=== PATIENT | male | born 1955 | race Caucasian/White ===

== ENCOUNTER 2016-08-16 09:58 | Emergency (ER) | payer OTHER, MEDICAID ==
[2016-08-16] MEDS ORDERED: DIPHENHYDRAMINE HCL 50 MG/ML VIAL ONE (10:09)
[2016-08-16] MEDS ORDERED: FAMOTIDINE INJ/PF 20 MG/2 ML SDV IV ONE ×2 (10:10→10:11)
[2016-08-16] MEDS ORDERED: METHYLPREDNISOLONE INJ 125 MG/2 ML SDV ONE (10:10)
[2016-08-16] MEDS ORDERED: EPINEPHRINE INJ/PF 1 MG/1 ML AMPULE ONE (10:10)
[2016-08-16] MEDS ORDERED: DIPHENHYDRAMINE HCL 50 MG/ML VIAL IV ONE (10:11)
[2016-08-16] MEDS ORDERED: METHYLPREDNISOLONE INJ 125 MG/2 ML SDV IV ONE (10:12)
[2016-08-16] MEDS ORDERED: EPINEPHRINE INJ/PF 1 MG/1 ML AMPULE IM ONE (10:13)
--- NOTE | 2016-08-16 10:14 | ER Document Report ---
ED Medical Screen (RME) - General Stated Complaint: BEE STING POSSIBLE Time Seen by Provider: 08/16/16 10:11 Mode of Arrival: Ambulatory Information source: Patient Notes: 60-year-old male who is allergic to bees was stung by bee just prior to arrival , EpiPen at home was , patient admits to difficulty breathing shortness of breath I have greeted and performed a rapid initial assessment of this patient. A comprehensive ED assessment and evaluation of the patient, analysis of test results and completion of the medical decision making process will be conducted by additional ED providers. PHYSICAL EXAMINATION: GENERAL: Appears to be having difficulty breathing HEAD: Atraumatic, normocephalic. EYES: Pupils equal round extraocular movements intact, conjunctiva are normal. ENT: Nares patent NECK: Normal range of motion LUNGS: Mild respiratory distress patient does have mild stress Musculoskeletal: Normal range of motion NEUROLOGICAL: Normal speech, normal gait. PSYCH: Normal mood, normal affect. SKIN: Warm, Dry, normal turgor, no rashes or lesions noted. TRAVEL OUTSIDE OF THE [place] IN LAST 30 DAYS: No - Related Data Allergies/Adverse Reactions: bee pollen [Bee Pollen] Allergy (Mild, Verified 08/19/15 12:40) propoxyphene napsylate [From Darvocet-N 100] Adverse Reaction (Intermediate, Verified 08/19/15 12:40) GI upset Past Medical History - Past Medical History Cardiac Medical History: Denies: Hx Coronary Artery Disease, Hx Heart Attack, Hx Hypertension Pulmonary Medical History: Denies: Hx Asthma, Hx Bronchitis, Hx COPD, Hx Pneumonia Neurological Medical History: Reports: Hx Migraine. Denies: Hx Cerebrovascular Accident, Hx Seizures Renal/ Medical History: Reports: Hx Kidney Stones Musculoskeltal Medical History: Denies Hx Arthritis Past Surgical History: Reports: Hx Orthopedic Surgery - Left rotator cuff, August 27 2015 - Immunizations Hx Diphtheria, Pertussis, Tetanus Vaccination: Yes
[2016-08-16] MEDS ORDERED: ASPIRIN 325 MG TABLET PO ONE (10:20)
[2016-08-16 10:40] LABS: ABSOLUTE BASOPHILS # (AUTO) 0.1 10^3/uL (0.0-0.2); ABSOLUTE EOSINOPHILS # (AUTO) 0.4 10^3/uL (0.0-0.6); ABSOLUTE LYMPHOCYTES (AUTO) 3.4 10^3/uL (0.5-4.7); ABSOLUTE NEUT (AUTO) 4.2 10^3/uL (1.7-8.2); BASOPHILS % (AUTO) 1.2 % (0-2); EOSINOPHILS % (AUTO) 4.5 % (0-6); HEMOGLOBIN 13.5 g/dL (13.5-17.0); HGB HCT DIFFERENCE 0.5; LYMPHOCYTES % (AUTO) 37.2 % (13-45); MEAN CORPUSCULAR HEMOGLOBIN 34.8 pg (27.0-33.4); MEAN CORPUSCULAR HGB CONC 33.7 g/dL (32.0-36.0); MEAN CORPUSCULAR VOLUME 103 fl (80-97); MONOCYTES % (AUTO) 10.7 % (3-13); RED BLOOD COUNT 3.87 10^6/uL (4.35-5.55); RED CELL DISTRIBUTION WIDTH 13.6 % (11.5-14.0); SEGMENTED NEUTROPHILS % (AUTO) 46.4 % (42-78)
--- NOTE | 2016-08-16 10:40 | ER Document Report ---
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 Patient states he started to have some lightheadedness as well as itching with some "scratchiness" of his throat. Patient came in by private vehicle. Patient denies any shortness of breath. Patient states that after the bee stings prior to any medication administration he felt some substernal nonradiating chest pain. Patient does have a history of a myocardial infarction. He denies any calf pain or leg swelling. Patient denies any chest pain at this time. He also states of mild frontal nonradiating headache without blurry vision. TRAVEL OUTSIDE OF THE [place] IN LAST 30 DAYS: No - HPI Onset: Other - See above Onset/Duration: Sudden Quality of pain: Other - See above Severity: Severe Pain Level: 1 Identified cause: Yes Skin rash / itching: "Redness" Trouble swallowing / speaking: Mild Associated symptoms: Other - See above Similar symptoms previously: Yes Recently seen / treated by doctor: No - Related Data Allergies/Adverse Reactions: bee pollen [Bee Pollen] Allergy (Mild, Verified 08/16/16 10:28) propoxyphene napsylate [From Darvocet-N 100] Adverse Reaction (Intermediate, Verified 08/16/16 10:28) GI upset Past Medical History - General Information source: Patient - Social History Smoking Status: Unknown if Ever Smoked Cigarette use (# per day): No Chew tobacco use (# tins/day): No Smoking Education Provided: No Frequency of alcohol use: None Drug Abuse: None Family History: Reviewed & Not Pertinent - Past Medical History Cardiac Medical History: Denies: Hx Coronary Artery Disease, Hx Heart Attack, Hx Hypertension Pulmonary Medical History: Denies: Hx Asthma, Hx Bronchitis, Hx COPD, Hx Pneumonia Neurological Medical History: Reports: Hx Migraine. Denies: Hx Cerebrovascular Accident, Hx Seizures Renal/ Medical History: Reports: Hx Kidney Stones Musculoskeltal Medical History: Denies Hx Arthritis Past Surgical History: Reports: Hx Orthopedic Surgery - Left rotator cuff, August 27 2015 - Immunizations Hx Diphtheria, Pertussis, Tetanus Vaccination: Yes Review of Systems - Review of Systems Constitutional: denies: Fever EENT: denies: Eye discharge, Double vision, Nose discharge Cardiovascular: Chest pain, Lightheaded. denies: Palpitations, Heart racing Respiratory: denies: Cough, Short of breath Gastrointestinal: denies: Vomiting Genitourinary: denies: Dysuria Musculoskeletal: denies: Leg swelling Skin: Rash Neurological/Psychological: Other - no slurred speech -: Yes All other systems reviewed and negative Physical Exam - Vital signs Vitals: Resp Pulse Ox 35 H 98 08/16/16 10:08 08/16/16 10:08 Notes: Reviewed vital signs and nursing note as charted by RN. CONSTITUTIONAL: Alert and oriented and responds appropriately to questions. Patient having some diffuse slight tremors HEAD: Normocephalic; atraumatic EYES: PERRL ENT: Normal nose; no rhinorrhea; no obvious lip, tongue, posterior pharyngeal swelling noted 5 minutes after epinephrine was administered; moist mucous membranes; pharynx without lesions noted NECK: Supple without meningismus; non-tender; no cervical lymphadenopathy, no masses CARD: Regular rate and rhythm; no murmurs, no clicks, no rubs, no gallops; symmetric distal pulses RESP: Normal chest excursion without splinting or tachypnea; breath sounds clear and equal bilaterally; no wheezing or stridor noted ABD/GI: Normal bowel sounds; non-distended; soft, non-tender BACK: The back appears normal and is non-tender to palpation EXT: Normal ROM in all joints; non-tender to palpation; no cyanosis, no effusions, no edema SKIN: Has some blanching hives to the inner thigh and right arm consistent with bee stings NEURO: Moves all extremities equally; Motor and sensory function intact PSYCH: The patient's mood and manner are appropriate. Grooming and personal hygiene are appropriate. Course - Re-evaluation Re-evalutation: 08/16/16 10:38 Given the above history, physical examination, past history, and presentation, the patient was administered epinephrine upon arrival by the triage provider. Solu-Medrol and Benadryl has also been given. Patient states he feels "better" . Given the patient's chest discomfort after the bee sting, we will obtain 2 sets of cardiac enzymes by 3 hours as we monitor the patient. 08/16/16 11:31 Patient's blood pressure is systolic in the high 80s. He is not tachycardic. Patient feels much improved. EKG shows a heart rate of 83, normal sinus rhythm, normal axis, no obvious ST elevation or depression. Flattening T waves in leads II, aVL, aVF, V3, V2 and V3. 08/16/16 12:32 Denies any chest pain at this time. 08/16/16 14:59 Patient is denying any chest pain at this time. Basically unchanged troponin at the 3 hour delaney. Repeat EKG shows a heart rate of 52, normal sinus rhythm, normal axis, no obvious ST elevation or depression. - Vital Signs Vital signs: Temp Pulse Resp BP Pulse Ox 98.2 F 20 100/58 L 99 08/16/16 10:09 08/16/16 11:06 08/16/16 11:06 08/16/16 11:06 - Laboratory Result Diagrams: 08/16/16 10:27 08/16/16 10:56 Laboratory results interpreted by me: 08/16/16 08/16/16 10:27 10:56 RBC 3.87 L MCV 103 H MCH 34.8 H Potassium 3.2 L Glucose 172 H Critical Care Note - Critical Care Note Total time excluding time spent on procedures (mins): 35 Discharge - Discharge Clinical Impression: Anaphylaxis Qualifiers: Encounter type: initial encounter Qualified Code(s): T78.2XXA - Anaphylactic shock, unspecified, initial encounter Bee sting Qualifiers: Encounter type: initial encounter Injury intent: accidental or unintentional Qualified Code(s): T63.441A - Toxic effect of venom of bees, accidental ( unintentional), initial encounter Condition: Good Disposition: HOME, SELF-CARE Additional Instructions: Come back immediately with any difficulty breathing, facial swelling, tongue swelling, return of chest pain, or any other acute problems. Please follow-up with your primary doctor as we have discussed. Prescriptions: Epinephrine [Epipen] 0.3 mg IJ ASDIR PRN #1 auto.injct PRN Reason: Prednisone 20 mg PO DAILY #6 tablet
--- NOTE | 2016-08-16 11:13 | RADIOLOGY REPORT (SQ) ---
EXAM DESCRIPTION: CHEST SINGLE VIEW COMPLETED DATE/TIME: 08/16/2016 10:49 am REASON FOR STUDY: Bee sting; sob COMPARISON: Chest films 10/18/2012, 10/06/2014, 07/30/2015, 11/05/2015 EXAM PARAMETERS: NUMBER OF VIEWS: One view. TECHNIQUE: Single frontal radiographic view of the chest acquired. RADIATION DOSE: NA LIMITATIONS: None. FINDINGS: LUNGS AND PLEURA: No opacities, masses or pneumothorax. No pleural effusion. MEDIASTINUM AND HILAR STRUCTURES: No masses. Contour normal. HEART AND VASCULAR STRUCTURES: Heart normal in size. Normal vasculature. BONES: No acute findings. HARDWARE: None in the chest. OTHER: No other significant finding. IMPRESSION: NO ACUTE RADIOGRAPHIC FINDING IN THE CHEST. TECHNICAL DOCUMENTATION: JOB ID: [id number]
[2016-08-16 11:24] LABS: ANION GAP 12 (5-19); BLOOD UREA NITROGEN 16 mg/dL (7-20); CALCIUM 8.9 mg/dL (8.4-10.2); CARBON DIOXIDE 23 mmol/L (22-30); CHLORIDE 106 mmol/L (98-107); CREATININE RESULT 1.01 mg/dL (0.52-1.25); GLUCOSE 172 mg/dL (75-110); POTASSIUM 3.2 mmol/L (3.6-5.0); SODIUM 140.5 mmol/L (137-145)
--- NOTE | 2016-08-16 12:58 | EKG REPORT ---
SEVERITY:- ABNORMAL ECG - SINUS RHYTHM INFERIOR INFARCT, AGE INDETERMINATE, CONSIDER POSTERIOR WALL INVOLVEMENT. : Confirmed by: David Milton MD 16-Aug-2016 12:57:21
[2016-08-16 16:14] VITALS: BP 92/59
--- NOTE | 2016-08-16 21:07 | EKG REPORT ---
SEVERITY:- ABNORMAL ECG - SINUS RHYTHM EARLY TRANSITION, CONSIDER OLD INFERO POST RI FROM Oct : Confirmed by: David Milton MD 16-Aug-2016 21:07:16
== END 2016-08-16 16:17 | disposition home or self-care (01) ==
LOC: ER 09:58
DX: T78.2XXA Anaphylactic shock, unspecified, initial encounter (principal); T63.441A Toxic effect of venom of bees, accidental (unintentional), initial encounter; W57.XXXA Bitten or stung by nonvenomous insect and other nonvenomous arthropods, initial encounter
CPT/HCPCS: 93005; 99285; 96372; 96374; 96375; 36415; 85025; 80048; 84484; 71010; 93010; J1200; J0171; J2930; S0028

== ENCOUNTER 2016-10-09 12:59 | Observation (INO) | payer OTHER, MEDICAID ==
[2016-10-09] MEDS ORDERED: MORPHINE SULFATE 10 MG/ML INJ IV ONE (13:37)
[2016-10-09] MEDS ORDERED: ONDANSETRON HCL INJ/PF 4 MG/2 ML SDV IV ONE (13:37)
--- NOTE | 2016-10-09 13:39 | ER Document Report ---
ED GI/ <MARY WEEKS - Last Filed: 10/09/16 23:26> - General Mode of Arrival: Wheelchair Information source: Patient TRAVEL OUTSIDE OF THE [place] IN LAST 30 DAYS: No - HPI Patient complains to provider of: Flank pain, Groin pain Onset: Last week Timing/Duration: Waxing and waning, Worse Quality of pain: Sharp Pain Level: 5 Location: Right flank Associated symptoms: Dysuria, Lightheaded, Nausea. denies: Loss of appetite, Urinary hesitancy, Urinary frequency, Urinary retention, Urinary urgency, Vomiting Exacerbated by: Denies Relieved by: Denies Similar symptoms previously: Yes Recently seen / treated by doctor: No <SUSAN SMITH - Last Filed: 10/10/16 07:06> - General Chief Complaint: Flank Pain Stated Complaint: FLANK PAIN Time Seen by Provider: 10/09/16 13:16 Notes: Patient presents complaining of right flank pain off and on for the past week that worsened today. Patient states pain radiates into his right groin. Patient also reports some nausea and dysuria. Patient reports occasional lightheadedness. Patient states he has had history kidney stones and suspects the same today. (SUSAN SMITH) - Related Data Allergies/Adverse Reactions: bee pollen [Bee Pollen] Allergy (Mild, Verified 10/09/16 20:13) propoxyphene napsylate [From Darvocet-N 100] Adverse Reaction (Intermediate, Verified 10/09/16 20:13) GI upset Home Medications: Current Home Medications Aspirin [Aspirin 81 mg Chewable Tablet] 81 mg PO DAILY 10/09/16 [History] Atorvastatin Calcium 80 mg PO QHS 10/09/16 [History] Furosemide [Lasix 40 mg Tablet] 40 mg PO PRN PRN 10/09/16 [History] Losartan Potassium 12.5 mg PO DAILY 10/09/16 [History] Nitroglycerin [Nitrostat] 0.4 mg SL PRN PRN 10/09/16 [History] Ticagrelor [Brilinta 90 mg Tablet] 1 tab PO BID 10/09/16 [History] Past Medical History - General Information source: Patient - Social History Smoking Status: Current Every Day Smoker Frequency of alcohol use: Occasional Drug Abuse: None Occupation: none Lives with: Spouse/Significant other Family History: Reviewed & Not Pertinent Patient has suicidal ideation: No Patient has homicidal ideation: No - Past Medical History Cardiac Medical History: Reports: Hx Heart Attack Denies: Hx Coronary Artery Disease, Hx Hypertension Pulmonary Medical History: Denies: Hx Asthma, Hx Bronchitis, Hx COPD, Hx Pneumonia Neurological Medical History: Reports: Hx Migraine. Denies: Hx Cerebrovascular Accident, Hx Seizures Renal/ Medical History: Reports: Hx Kidney Stones. Denies: Hx Peritoneal Dialysis Musculoskeltal Medical History: Denies Hx Arthritis Past Surgical History: Reports: Hx Orthopedic Surgery - Left rotator cuff, August 27 2015 - Immunizations Hx Diphtheria, Pertussis, Tetanus Vaccination: Yes <SUSAN SMITH - Last Filed: 10/10/16 07:06> Review of Systems - Review of Systems Constitutional: No symptoms reported. denies: Fever, Recent illness EENT: No symptoms reported Cardiovascular: Lightheaded. denies: Chest pain Respiratory: No symptoms reported. denies: Cough, Short of breath Gastrointestinal: Nausea. denies: Vomiting Genitourinary: Dysuria, Flank pain Male Genitourinary: No symptoms reported Musculoskeletal: Back pain Skin: No symptoms reported Hematologic/Lymphatic: No symptoms reported Neurological/Psychological: No symptoms reported <SUSAN SMITH - Last Filed: 10/10/16 07:06> Physical Exam - General General appearance: Appears well, Alert In distress: Mild - Respiratory Respiratory status: No respiratory distress Chest status: Nontender Breath sounds: Normal. No: Rales, Rhonchi, Stridor, Wheezing Chest palpation: Normal - Cardiovascular Rhythm: Regular Heart sounds: S1 appreciated, S2 appreciated Murmur: No - Abdominal Inspection: Normal Distension: No distension Bowel sounds: Normal Tenderness: Nontender Organomegaly: No organomegaly - Genitourinary Inspection: Normal Tenderness: Testicle tender - right, Epididymis tender - right Cremasteric reflex: Normal Scrotum: Normal - Back Back: CVA tenderness - right - Extremities General upper extremity: Normal inspection, Normal ROM General lower extremity: Normal inspection, Normal ROM - Neurological Neuro grossly intact: Yes Cognition: Normal [place] Coma Scale Eye Opening: Spontaneous Dexter Coma Scale Verbal: Oriented Dexter Coma Scale Motor: Obeys Commands Dexter Coma Scale Total: 15 - Psychological Associated symptoms: Normal affect, Normal mood - Skin Skin Temperature: Warm Skin Moisture: Dry Skin Color: Normal <SUSAN SMITH - Last Filed: 10/10/16 07:06> - Vital signs Vitals: Temp Pulse Resp BP Pulse Ox 98.6 F 72 20 121/73 99 10/09/16 13:07 10/09/16 13:07 10/09/16 13:07 10/09/16 13:07 10/09/16 13:07 Course - Laboratory Result Diagrams: 10/09/16 13:55 10/09/16 13:55 <MARY WEEKS - Last Filed: 10/09/16 23:26> - Laboratory Result Diagrams: 10/09/16 13:55 10/09/16 13:55 - Diagnostic Test Radiology reviewed: Reports reviewed <LUISSUSAN - Last Filed: 10/10/16 07:06> - Re-evaluation Re-evalutation: 10/09/16 23:26 Repeat trop 0.028 still below AMI cutoff, patient without chest pain since his initial episode. Discussed with hospitalist who agrees to telly obs. for chest pain (MARY WEEKS) 10/09/16 14:09 RN reports that after IV was placed, patient became diaphoretic and complained of chest tightness. Additional diagnostic tests ordered. Patient states that his chest tightness is resolving at this time. 10/09/16 15:27 Patient mildly hypotensive, patient states that his blood pressure always runs low. Patient states that he continues with right flank pain although denies any chest tightness at this time. 10/09/16 19:09 Patient resting comfortably at this time, patient denies any additional chest pain during ER stay. Discussed results of patient's ultrasound report with patient. Patient advised that he will need to follow-up with a urologist for a recheck. Discussed upward trending repeat trop with Dr Dawson who advises consultation with hospitalist. 10/09/16 20:26 Repeat EKG performed and reviewed per dr Dawson. 10/09/16 20:[address] Berman who advises repeating cardiac enzymes 1 hour from now. Will determine after labs are resulted whether or not he will admit patient. Bedside report and handout given to Mary GURROLA (SUSAN SMITH) - Vital Signs Vital signs: Temp Pulse Resp BP Pulse Ox 97.8 F 51 L 17 109/47 L 97 10/10/16 04:05 10/10/16 04:05 10/10/16 04:05 10/10/16 04:05 10/10/16 04:05 - Laboratory Laboratory results interpreted by me: 10/09/16 10/09/16 13:55 13:55 RBC 4.17 L MCV 101 H MCH 34.9 H Eosinophils % 6.4 H Direct Bilirubin 0.5 H Discharge - Discharge Admitting Provider: [facility] Unit Admitted: Telemetry <MARY WEEKS - Last Filed: 10/09/16 23:26> <SUSAN SMITH - Last Filed: 10/10/16 07:06> - Discharge Clinical Impression: Flank pain, Orchitis Chest pain Qualifiers: Chest pain type: unspecified Qualified Code(s): R07.9 - Chest pain, unspecified Condition: Stable Disposition: ADMITTED OBSERVATION
[2016-10-09 14:37] LABS: ABSOLUTE BASOPHILS # (AUTO) 0.1 10^3/uL (0.0-0.2); ABSOLUTE EOSINOPHILS # (AUTO) 0.4 10^3/uL (0.0-0.6); ABSOLUTE LYMPHOCYTES (AUTO) 2.6 10^3/uL (0.5-4.7); ABSOLUTE MONOCYTES (AUTO) 0.6 10^3/uL (0.1-1.4); ABSOLUTE NEUT (AUTO) 2.6 10^3/uL (1.7-8.2); BASOPHILS % (AUTO) 1.2 % (0-2); EOSINOPHILS % (AUTO) 6.4 % (0-6); HEMOGLOBIN 14.5 g/dL (13.5-17.0); HGB HCT DIFFERENCE 1.5; MEAN CORPUSCULAR HEMOGLOBIN 34.9 pg (27.0-33.4); MEAN CORPUSCULAR HGB CONC 34.6 g/dL (32.0-36.0); MEAN CORPUSCULAR VOLUME 101 fl (80-97); MONOCYTES % (AUTO) 9.4 % (3-13); RED BLOOD COUNT 4.17 10^6/uL (4.35-5.55); RED CELL DISTRIBUTION WIDTH 13.7 % (11.5-14.0); WHITE BLOOD COUNT 6.2 10^3/uL (4.0-10.5)
[2016-10-09] MEDS ORDERED: NORMAL SALINE 1000 ML 1,000 ML IV ONE ×2 (14:52→23:31)
[2016-10-09 14:55] LABS: ALANINE AMINOTRANSFERASE 29 U/L (21-72); ALBUMIN 4.2 g/dL (3.5-5.0); ALKALINE PHOSPHATASE 70 U/L (38-126); ANION GAP 11 (5-19); ASPARTATE AMINO TRANSFERASE 22 U/L (17-59); BILIRUBIN,DIRECT 0.5 mg/dL (0.0-0.4); BILIRUBIN,TOTAL 0.9 mg/dL (0.2-1.3); BLOOD UREA NITROGEN 13 mg/dL (7-20); CALCIUM 9.9 mg/dL (8.4-10.2); CARBON DIOXIDE 25 mmol/L (22-30); CHLORIDE 105 mmol/L (98-107); CREATINE KINASE 81 U/L (55-170); CREATININE RESULT 0.87 mg/dL (0.52-1.25); GLUCOSE 81 mg/dL (75-110); LIPASE 58.2 U/L (23-300); POTASSIUM 4.9 mmol/L (3.6-5.0); SODIUM 140.8 mmol/L (137-145); TOTAL PROTEIN 6.9 g/dL (6.3-8.2)
[2016-10-09 15:04] LABS: CREATINE KINASE MB 0.62 ng/mL (<4.55)
[2016-10-09 15:10] LABS: TROPONIN I < 0.012 ng/mL
--- NOTE | 2016-10-09 16:19 | RADIOLOGY REPORT (SQ) ---
EXAM DESCRIPTION: CTA CHEST COMPLETED DATE/TIME: 10/09/2016 4:10 pm REASON FOR STUDY: cp, r flank, ?disection COMPARISON: None. TECHNIQUE: CT scan of the chest performed using helical scanning technique with dynamic intravenous contrast injection. Images reviewed with lung, soft tissue and bone windows. Reconstructed coronal and sagittal MPR images reviewed. Additional 3 dimensional post-processing performed to develop Maximal Intensity Projection images (CO P). All images stored on PACS. All CT scanners at this facility use dose modulation, iterative reconstruction, and/or weight based d osing when appropriate to reduce radiation dose to as low as reasonably achievable (ALARA). [facility]: Dose Right [facility]: CareDose [facility]: Dose Right [facility]: Teradose 4D [facility]: Ouroboros CONTRAST TYPE AND DOSE: 75 mL Isovue 370- low osmolar. Contrast bolus optimized for the pulmonary arteries. Not diagnostic for the aorta. RENAL FUNCTION: BUN 13, creatinine 0.87 RADIATION DOSE: . LIMITATIONS: None. FINDINGS: LUNGS AND PLEURA: No masses, infiltrates, pneumothorax. No pleural effusions, calcificati ons. AORTA AND GREAT VESSELS: No aneurysm. Contrast bolus not optimized for the aorta. HEART: No pericardial effusion. No significant coronary artery calcifications. PULMONARY ARTERIES: No emboli visualized in the main pulmonary arteries or the segmental branches. HILAR AND MEDIASTINAL STRUCTURES: No identified masses or abnormal nodes. HARDWARE: None in the chest. UPPER ABDOMEN: No significant findings. Limited exam. THYROID AND OTHER SOFT TISSUES: No masses. No adenopathy. BONES: No acute or significant finding. 3D MIPS: Confirm above findings. OTHER: No other significant finding. IMPRESSION: NORMAL CTA OF THE CHEST. NO PULMONARY EMBOLI. COMMENT: Quality ID # [id number]: Final reports with documentation of one or more dose reduction techniques (e.g., Automated exposure control, adjustment of the mA and/or kV according to patient size, use of iterative reconstruction technique) TECHNICAL DOCUMENTATION: JOB ID: [id number] [email or web address]- All Rights Reserved
--- NOTE | 2016-10-09 16:22 | RADIOLOGY REPORT (SQ) ---
EXAM DESCRIPTION: CT ABD/PELVIS WITH IV ONLY COMPLETED DATE/TIME: 10/09/2016 4:11 pm REASON FOR STUDY: cp, r flank, ?disection COMPARISON: None. TECHNIQUE: CT scan of the abdomen and pelvis performed using helical scanning technique with dynamic intravenous contrast injection. No oral contrast. Images reviewed with lung, soft tissue, and bone windows. Reconstructed coronal and sagittal MPR images reviewed. Delayed images for evaluation of the urinary system also acquired. All images stored on PACS. All CT scanners at this facility use dose modulation, iterative reconstruction, and/or weight based d osing when appropriate to reduce radiation dose to as low as reasonably achievable (ALARA). [facility]: Dose Right [facility]: CareDose [facility]: Dose Right [facility]: Teradose 4D [facility]: Track the Bet CONTRAST TYPE AND DOSE: contrast/concentration: Isovue 370.00 mg/ml; Total Contrast Delivered: 89.0 ml; Total Saline Delivered: 75.0 ml RENAL FUNCTION: BUN 13, creatinine 0.7 RADIATION DOSE: Up-to-date CT equipment and radiation dose reduction techniques were employed. CTDIv ol: 10.1 - 46.3 mGy. DLP: 1656 mGy-cm.. LIMITATIONS: None. FINDINGS: LOWER CHEST: No significant findings. No nodules or infiltrates. LIVER: Normal size. No masses. No dilated ducts. SPLEEN: Normal size. No focal lesions. PANCREAS: No masses. No significant calcifications. No adjacent inflammation or peripancreatic fluid collections. Pancreatic duct not dilated. GALLBLADDER: No identified stones by CT criteria. No inflammatory changes to suggest cholecystitis. ADRENAL GLANDS: No significant masses or asymmetry. RIGHT KIDNEY AND URETER: No solid masses. No significant calcifications. No hydronephrosis or hyd roureter. LEFT KIDNEY AND URETER: No solid masses. No significant calcifications. No hydronephrosis or hydr oureter. There is a small cortical cyst. AORTA AND VESSELS: No aneurysm. No dissection. Renal arteries, SMA, celiac without stenosis. RETROPERITONEUM: No retroperitoneal adenopathy, hemorrhage or masses. BOWEL AND PERITONEAL CAVITY: No masses or inflammatory changes. No free fluid or peritoneal masses. APPENDIX: Normal. PELVIS: No mass. No free fluid. Normal bladder. ABDOMINAL WALL: No masses. No hernias. BONES: No significant or acute findings. OTHER: No other significant finding. IMPRESSION: NO SIGNIFICANT OR ACUTE FINDING IN THE ABDOMEN OR PELVIS ON CT SCAN WITH IV CONTRAST. TECHNICAL DOCUMENTATION: JOB ID: [id number] Quality ID # [id number]: Final reports with documentation of one or more dose reduction techniques (e.g., Au tomated exposure control, adjustment of the mA and/or kV according to patient size, use of iterative reconstruction technique) 2010 [employer]- All Rights Reserved
[2016-10-09] MEDS ORDERED: FENTANYL CITRATE INJ/PF 100 MCG/2 ML AMPUL IV ONE (17:17)
[2016-10-09] MEDS ORDERED: LIDOCAINE 5% (700 MG) TRANSDERMAL ADH..PATCH TP ONE (17:18)
[2016-10-09 17:31] LABS: APPEARANCE,URINE CLEAR; BILIRUBIN,URINE NEGATIVE (NEGATIVE); GLUCOSE, URINE NEGATIVE (NEGATIVE); KETONES,URINE NEGATIVE (NEGATIVE); LEUKOCYTE ESTERASE,URINE NEGATIVE (NEGATIVE); NITRITE,URINE NEGATIVE (NEGATIVE); PROTEIN,URINE NEGATIVE (NEGATIVE); URINE SPECIFIC GRAVITY 1.023; UROBILINOGEN,URINE NEGATIVE mg/dL (<2.0)
[2016-10-09 17:48] LABS: URINE BARBITURATES SCREEN NEGATIVE; URINE METHADONE SCREEN NEGATIVE; URINE OPIATES LOW UNCONFIRMED POSITIVE; URINE PHENCYCLIDINE SCREEN NEGATIVE
--- NOTE | 2016-10-09 18:51 | RADIOLOGY REPORT (SQ) ---
EXAM DESCRIPTION: U/S SCROTUM W/DOPPLER COMPLETED DATE/TIME: 10/09/2016 6:31 pm REASON FOR STUDY: scrotal tenderness COMPARISON: 2014. TECHNIQUE: Static and realtime dawson scale imaging of the scrotum and testes. Selected color Doppler and spectral images recorded to document blood flow. LIMITATIONS: None. FINDINGS: RIGHT: TESTICLE: Normal size. Normal echotexture. Hypervascular blood flow. No mass. EPIDIDYMIS: Normal. HYDROCELE OR VARICOCELE: Large hydrocele with debris. HERNIA OR EXTRA-TESTICULAR MASS: No. OTHER: No other significant finding. LEFT: TESTICLE: Normal size. Normal echotexture. Normal blood flow. No mass. EPIDIDYMIS: Normal. HYDROCELE OR VARICOCELE: Large hydrocele with debris. HERNIA OR EXTRA-TESTICULAR MASS: No. OTHER: Mild scrotal thickening. IMPRESSION: 1. Bilateral sizable hydroceles. Probable right orchitis. No evidence of torsion, purnima a[place] TECHNICAL DOCUMENTATION: JOB ID: [id number] [employer]- All Rights Reserved
[2016-10-09] MEDS ORDERED: CEFTRIAXONE INJ 250 MG VIAL IV ONE (18:58)
[2016-10-09] MEDS ORDERED: ASPIRIN 81 MG TABLET, CHEWABLE PO ONE (19:37)
[2016-10-09] MEDS ORDERED: LEVOFLOXACIN 500 MG TABLET PO ONE (19:58)
[2016-10-09 23:16] LABS: CREATINE KINASE MB 0.74 ng/mL (<4.55); TROPONIN I 0.028 ng/mL
--- NOTE | 2016-10-09 23:17 | EKG REPORT ---
SEVERITY:- ABNORMAL ECG - SINUS RHYTHM PROBABLE LEFT ATRIAL ABNORMALITY PROBABLE INFERIOR INFARCT, AGE INDETERMINATE : Confirmed by: Jeremie Rivera 09-Oct-2016 23:16:18
--- NOTE | 2016-10-09 23:17 | EKG REPORT ---
SEVERITY:- BORDERLINE ECG - SINUS BRADYCARDIA BORDERLINE LEFT AXIS DEVIATION BORDERLINE INFERIOR Q WAVES : Confirmed by: Jeremie Rivera 09-Oct-2016 23:16:29
--- NOTE | 2016-10-09 23:17 | EKG REPORT ---
SEVERITY:- OTHERWISE NORMAL ECG - SINUS RHYTHM BORDERLINE LEFT AXIS DEVIATION : Confirmed by: Jeremie Rivera 09-Oct-2016 23:16:37
[2016-10-09] MEDS ORDERED: IPRATROPIUM/ALBUTEROL 0.5-2.5 MG/3 ML AMPUL NEB PRN (23:28)
[2016-10-09] MEDS ORDERED: ATORVASTATIN CALCIUM 80 MG TABLET PO SCH (23:45)
[2016-10-09] MEDS ORDERED: TICAGRELOR 90 MG TABLET PO SCH (23:45)
[2016-10-10] MEDS ORDERED: KETOROLAC TROMETHAMINE INJ/PF 30 MG/1 ML SDV IV PRN (01:01)
[2016-10-10] MEDS ORDERED: ACETAMINOPHEN 325 MG TABLET ONE (01:10)
[2016-10-10] MEDS ORDERED: ACETAMINOPHEN 325 MG TABLET PO PRN (01:30)
--- NOTE | 2016-10-10 05:38 | PDOC H&P ---
History of Present Illness Admission Date/PCP: 10/09/16 23:28 Patient complains of: Chest pain History of Present Illness: ESTRELLA RODRIGUEZ is a 61 year old male with a past medical history of coronary artery disease with stents, Tobacco Dependence, hypertension and dyslipidemia who would been in his usual state of health until approximately 4 hours prior to presentation developing left-sided flank pain which radiated to the groin prompting to seek evaluation emergency room. He had an extensive workup including CT of the chest, CT of the abdomen pelvis and abdominal ultrasound which was negative with exception to orchitis and subsequently ordered IV Rocephin however during the administration of this medication patient had an episode of aching nonradiating 4 out of 5 retrosternal chest pain lasting 15 minutes with diaphoresis prompting an evaluation of cardiac enzymes which was found to be elevated. An EKG showed Q waves in inferior leads and he is referred to the hospitalist for admission. He is currently pain-free he denies recent chest pain shortness of breath nausea vomiting. He denies change in medications. His chest pain today resolved spontaneously without intervention. Past Medical History Cardiac Medical History: Reports: Myocardial Infarction Denies: Coronary Artery Disease, Hypertension Pulmonary Medical History: Denies: Asthma, Bronchitis, Chronic Obstructive Pulmonary Disease (COPD), Pneumonia Neurological Medical History: Reports: Migraine Denies: Seizures Musculoskeltal Medical History: Denies: Arthritis Psychiatric Medical History: Reports: Tobacco Dependency Hematology: Denies: Anemia Past Surgical History Past Surgical History: Reports: Coronary Stent, Orthopedic Surgery - Left rotator cuff, August 27 2015 Social History Lives with: Spouse/Significant other Smoking Status: Current Every Day Smoker Cigarettes Packs Per Day: 1 Number of Years Smokin Last Time Smoked: 10/08/16 Frequency of Alcohol Use: Occasional Hx Recreational Drug Use: No Hx Prescription Drug Abuse: No - Advance Directive Resuscitation Status: Full Code Family History Family History: Hypertension Parental Family History Reviewed: Yes Children Family History Reviewed: Yes Sibling(s) Family History Reviewed.: Yes Medication/Allergy Home Medications: Epinephrine [Epipen] 0.3 mg IJ ASDIR PRN #1 auto.injct 08/16/16 Aspirin [Aspirin 81 mg Chewable Tablet] 81 mg PO DAILY 10/09/16 Atorvastatin Calcium 80 mg PO QHS 10/09/16 Furosemide [Lasix 40 mg Tablet] 40 mg PO PRN PRN 09/02/17 Hydrocodone/Acetaminophen [[place] 5-325 Tablet] 1 each PO Q4 PRN #15 tablet 10/09 Levofloxacin [Levaquin 500 mg Tablet] 500 mg PO DAILY #10 tablet 10/09/16 Losartan Potassium 12.5 mg PO DAILY 10/09/16 Nitroglycerin [Nitrostat] 0.4 mg SL PRN PRN 10/09/16 Ticagrelor [Brilinta 90 mg Tablet] 1 tab PO BID 10/09/16 Allergies/Adverse Reactions: bee pollen [Bee Pollen] Allergy (Mild, Verified 10/09/16 20:13) propoxyphene napsylate [From Darvocet-N 100] Adverse Reaction (Intermediate, Verified 10/09/16 20:13) GI upset Review of Systems Constitutional: ABSENT: chills, fever(s), headache(s), weight gain, weight loss Eyes: ABSENT: visual disturbances Ears: ABSENT: hearing changes Cardiovascular: ABSENT: chest pain, dyspnea on exertion, edema, orthropnea, palpitations Respiratory: ABSENT: cough, hemoptysis Gastrointestinal: ABSENT: abdominal pain, constipation, diarrhea, hematemesis, hematochezia, nausea, vomiting Genitourinary: ABSENT: dysuria, hematuria Musculoskeletal: ABSENT: joint swelling Integumentary: ABSENT: rash, wounds Neurological: ABSENT: abnormal gait, abnormal speech, confusion, dizziness, focal weakness, syncope Psychiatric: ABSENT: anxiety, depression, homidical ideation, suicidal ideation Endocrine: ABSENT: cold intolerance, heat intolerance, polydipsia, polyuria Hematologic/Lymphatic: ABSENT: easy bleeding, easy bruising Physical Exam Vital Signs: Temp Pulse Resp BP Pulse Ox 98.0 F 51 L 16 110/61 97 10/10/16 00:33 10/10/16 00:33 10/10/16 00:33 10/10/16 00:33 10/10/16 00:33 General appearance: PRESENT: no acute distress, well-developed, well-nourished Head exam: PRESENT: atraumatic, normocephalic Eye exam: PRESENT: conjunctiva pink, EOMI, PERRLA. ABSENT: scleral icterus Ear exam: PRESENT: normal external ear exam Mouth exam: PRESENT: moist, tongue midline Neck exam: ABSENT: carotid bruit, JVD, lymphadenopathy, thyromegaly Respiratory exam: PRESENT: clear to auscultation jessica. ABSENT: rales, rhonchi, wheezes Cardiovascular exam: PRESENT: RRR. ABSENT: diastolic murmur, rubs, systolic murmur Pulses: PRESENT: normal dorsalis pedis pul Vascular exam: PRESENT: normal capillary refill GI/Abdominal exam: PRESENT: normal bowel sounds, soft. ABSENT: distended, guarding, mass, organolmegaly, rebound, tenderness Rectal exam: PRESENT: deferred Extremities exam: PRESENT: full ROM. ABSENT: calf tenderness, clubbing, pedal edema Neurological exam: PRESENT: alert, awake, oriented to person, oriented to place , oriented to time, oriented to situation, CN II-XII grossly intact. ABSENT: motor sensory deficit Psychiatric exam: PRESENT: appropriate affect, normal mood. ABSENT: homicidal ideation, suicidal ideation Skin exam: PRESENT: dry, intact, warm. ABSENT: cyanosis, rash Results Impressions: Abdomen/Pelvis CT 10/09/16 14:07 IMPRESSION: NO SIGNIFICANT OR ACUTE FINDING IN THE ABDOMEN OR PELVIS ON CT SCAN WITH IV CONTRAST. Chest/Abdomen CTA 10/09/16 14:07 IMPRESSION: NORMAL CTA OF THE CHEST. NO PULMONARY EMBOLI. Scrotum Ultrasound 10/09/16 16:42 IMPRESSION: 1. Bilateral sizable hydroceles. Probable right orchitis. No evidence of torsion, however. Assessment & Plan - Diagnosis (1) Chest pain Qualifiers: Chest pain type: unspecified Qualified Code(s): R07.9 - Chest pain, unspecified Is this a current diagnosis for this admission?: Yes Plan: Observation on a monitored bed, aspirin. KORY inhibitor serial cardiac enzymes evaluation of risks for coronary artery disease Cardiolite stress test. (2) Orchitis Is this a current diagnosis for this admission?: Yes Plan: Symptomatic management denies risk for STD doxycycline p.o. - Time Time Spent: 30 to 50 Minutes
[2016-10-10] MEDS ORDERED: HEPARIN SOD (PORCINE) 5,000 UNIT/ML 1 ML SYRINGE SUBCUT SCH (06:00)
[2016-10-10 06:42] LABS: CREATINE KINASE MB 0.72 ng/mL (<4.55)
[2016-10-10 06:43] LABS: TROPONIN I < 0.012 ng/mL
[2016-10-10 08:31] VITALS: BP 95/57
[2016-10-10] MEDS ORDERED: NORMAL SALINE 1000 ML 1,000 ML IV ONE (09:00)
[2016-10-10] MEDS ORDERED: DOXYCYCLINE HYCLATE 100 MG TABLET PO SCH (10:00)
[2016-10-10] MEDS ORDERED: LOSARTAN POTASSIUM 25 MG TABLET PO SCH (10:00)
[2016-10-10] MEDS ORDERED: ASPIRIN 81 MG TABLET, CHEWABLE PO SCH (10:00)
[2016-10-10] MEDS ORDERED: LEVOFLOXACIN 750 MG/D5W RTU 750 MG/150 ML RTUPB IV SCH (10:00)
[2016-10-10] MEDS ORDERED: HYDROCODONE/ACETAMINOPHEN 5-325 MG TABLET PO PRN (10:41)
[2016-10-10 12:29] LABS: CHLAM PCR NOT DETECTED (NOT DETECT)
[2016-10-10] MEDS ORDERED: AMINOPHYLLINE INJ/PF 250 MG/10 ML SDV IV ONE (12:32)
[2016-10-10] MEDS ORDERED: REGADENOSON INJ 0.4 MG/5 ML DISP.SYRIN IV ONE (12:32)
--- NOTE | 2016-10-10 13:19 | DRAGON STRESS TEST REPORT ---
INTRAVENOUS LEXISCAN CARDIOLITE STRESS TEST USING SINGLE PHOTON EMMISION COMPUTERIZED TOMOGRAPHIC. DATE OF PROCEDURE: October 10, 2016 INDICATION : Chest pain CARDIAC RISK FACTORS: Hypertension, dyslipidemia, tobacco abuse RESTING EKG: Sinus rhythm, without any baseline ST-T wave changes. STRESS EKG: No significant changes noted with LexiScan bolus REASON FOR TERMINATION: Protocol. PROCEDURE REPORT: Baseline heart rate 60 beats per minute with blood pressure of 106/60. Patient had no significant complaints. Heart rate at 2 minutes post bolus 78 with a blood pressure of 121/62. 3 minutes post bolus heart rate 69 with blood pressure of 106/61. No significant EKG changes were noted. Patient had no significant complaints during the procedure or postprocedure. Patient injected with Aminophyllin 75 mg at 3 minutes or later after Lexiscan bolus. CONCLUSIONS: Normal EKG and hemodynamic response to IV LexiScan. NUCLEAR DATA: At rest the patient was given 10.48 millicuries of technetium 99 sestamibi injected intravenously. As per protocol rest gated SPECT images were obtained. Subsequently the patient was given intravenous LexiScan at a dose of 0.4 mg in 5 mL intravenously, followed by flush with normal saline. Subsequently the stress dose of 31.1 millicuries of technetium 99 sestamibi was injected intravenously. As per protocol stress gated images were obtained. NUCLEAR INTERPRETATION: Both raw and processed data were used for interpretation. Visual, qualitative, computer-generated quantitative data was used. There was good myocardial uptake of technetium compound. Motion artifact and soft tissue attenuations were noted. Increased visceral uptake was noted. No definitive areas of transient perfusion defect noted except for borderline decreased uptake in the basal inferior with SDS score of just 1. No definitive areas of fixed perfusion defect or scars noted. EKG gated imaging showed LV EF at 51 %, rest and stress gated EF similar visually. T. I D. ratio was 0.16 lung heart ratio noted to be within normal limits neuro 0.40. No significant extracardiac and abnormal radiotracer activities were noted. RV free wall uptake was noted to be wnl to borderline increased. IMPRESSION: Also refer to comments under nuclear interpretation. Also test results needs to be interpreted in the context of pretest probability. 1. There is no definitive scintigraphic evidence of LexiScan induced myocardial ischemia, except for borderline decreased uptake in the basal inferior wall in the stress images felt to be not significant. However clinical correlation is requested. SDS score was 1 therefore medical management would be a satisfactory option. 2. There is no definitive scintigraphic evidence of myocardial infarction/scar. 3. EKG gated imaging shows left ventricular ejection fraction of approximately 51 %. 4. Clinical correlation requested as occasionally single vessel disease or balanced ischemia could be missed. In approximately 10% of the cases Lexiscan may not cause adequate vasodilatory stress. RECOMMENDATIONS: Aggressive risk factor modification, medical therapy. Clinical correlation with echocardiogram derived ejection fraction. Inability to exercise by itself can lead to increased cardiovascular event risks. Consider cardiology consultation and or follow-up if clinically indicated. I AM AVAILABLE FOR CARDIOLOGY CONSULTATION AND FOLLOWUP IF REQUESTED BY PMD Jeremie Rivera M.D., MELANIE Senior Infrastructure Engineer tracer lathe set up operator, Board certified in cardiovascular diseases, Nuclear cardiology, Echocardiography Cardiac CT and cardiac MRI Ph. [phone] [facility]ALTHMartin
--- NOTE | 2016-10-11 07:36 | PDOC DISCHARGE SUMMARY ---
General - Admit/Disc Date/PCP Admission Date/Primary Care Provider: 10/09/16 23:28 Discharge Date: 10/10/16 - Discharge Diagnosis (1) Chest pain Is this a current diagnosis for this admission?: Yes (2) Orchitis Is this a current diagnosis for this admission?: Yes (3) Tobacco abuse Is this a current diagnosis for this admission?: Yes - Additional Information Resuscitation Status: Full Code Discharge Diet: Cardiac Discharge Activity: Activity As Tolerated, Pelvic Rest, Other - elevate and ice scrotum Home Medications: Epinephrine [Epipen] 0.3 mg IJ ASDIR PRN #1 auto.injct 08/16/16 Aspirin [Aspirin 81 mg Chewable Tablet] 81 mg PO DAILY 10/09/16 Atorvastatin Calcium 80 mg PO QHS 10/09/16 Furosemide [Lasix 40 mg Tablet] 40 mg PO DAILYP PRN 10/09/16 Losartan Potassium 12.5 mg PO DAILY 10/09/16 Ticagrelor [Brilinta 90 mg Tablet] 90 mg PO Q12 10/09/16 Cefuroxime Axetil [Ceftin 500 mg Tablet] 1 tab PO BID #14 tablet 10/10/16 Hydrocodone/Acetaminophen [[place] 5-325 mg Tablet] 1 tab PO Q6HP PRN #10 tablet 10/10/16 Ibuprofen [Motrin 800 mg Tablet] 800 mg PO Q8HP PRN #10 tab 10/10/16 Levofloxacin [Levaquin 750 mg Tablet] 750 mg PO DAILY #10 tab 10/10/16 Metronidazole [Flagyl 500 mg Tablet] 500 mg PO TID #21 tablet 10/10/16 Nitroglycerin [Nitrostat 0.4 mg (1/150 Gr) Tabs 25/Bottle] 1 tab SL Q5MP PRN 04/23 History of Present Illness History of Present Illness: See H&P for full HPI Hospital Course Hospital Course: Patient presented to the emergency department with complaints of flank pain. He was found to have orchitis. When starting an IV patient developed chest pain. He was placed on observation and ruled out for acute coronary syndrome with negative troponins 3. Patient underwent stress test which was negative. He was discharged in stable condition. Prior to discharge patient was receiving Levaquin and developed redness and itching around his IV site. This was discontinued and he was given prescription for Flagyl and cefoxitin. Physical Exam Vital Signs: Temp Pulse Resp BP Pulse Ox 97.5 F 56 L 17 95/57 L 100 10/10/16 07:33 10/10/16 07:33 10/10/16 07:33 10/10/16 07:33 10/10/16 07:33 Intake & Output 10/09/16 10/10/16 10/11/16 06:59 06:59 06:59 Intake Total 1000 Balance 1000 Weight 54 kg Exam: General: Awake alert and oriented x3, no acute respiratory distress HEENT: AT/NC, PERRL, EOMI, oropharynx is moist, pink, no scleral icterus, no conjunctival injection Neck: No JVD, trachea midline Chest: Clear to auscultation bilaterally, no wheezes rhonchi or rales CV: Regular rate and rhythm, normal S1 and S2, no murmur, rub, or gallop Abdomen: Soft, nontender to palpation, nondistended, active bowel sounds; no rebound, rigidity, or guarding Extremities: No cyanosis, clubbing or edema Neuro: Cranial nerves II through XII are grossly intact without focal deficits; awake alert and oriented x3 Psych: Normal mood and affect Results Laboratory Results: 10/10/16 10/10/16 05:46 05:46 Creatine Kinase 55 CK-MB (CK-2) 0.72 Troponin I < 0.012 Impressions: Abdomen/Pelvis CT 10/09/16 14:07 IMPRESSION: NO SIGNIFICANT OR ACUTE FINDING IN THE ABDOMEN OR PELVIS ON CT SCAN WITH IV CONTRAST. Chest/Abdomen CTA 10/09/16 14:07 IMPRESSION: NORMAL CTA OF THE CHEST. NO PULMONARY EMBOLI. Scrotum Ultrasound 10/09/16 16:42 IMPRESSION: 1. Bilateral sizable hydroceles. Probable right orchitis. No evidence of torsion, however. Qualifiers PATEINT BEING DISCHARGED WITH ANY OF THE FOLLOWING DIAGNOSIS?: No Plan Time Spent: Less than 30 Minutes
== END 2016-10-10 15:36 | disposition home or self-care (01) ==
LOC: ER 12:59 → EH 23:28 → UNDOADMOB 23:38 → EH 23:38 → 5 10-10 00:35 → EH 10-10 00:35
PROVIDERS: ADMIT Internal Medicine; ATTEND Internal Medicine
DX: R07.2 Precordial pain (principal); N45.2 Orchitis; F17.200 Nicotine dependence, unspecified, uncomplicated; L29.8 Other pruritus; R23.8 Other skin changes; T37.8X5A Adverse effect of other specified systemic anti-infectives and antiparasitics, initial encounter; Y92.239 Unspecified place in hospital as the place of occurrence of the external cause; R30.0 Dysuria; I25.2 Old myocardial infarction; M54.9 Dorsalgia, unspecified; F17.210 Nicotine dependence, cigarettes, uncomplicated; R42 Dizziness and giddiness; Z79.899 Other long term (current) drug therapy; Z79.82 Long term (current) use of aspirin; Z87.442 Personal history of urinary calculi; Z79.02 Long term (current) use of antithrombotics/antiplatelets; Z95.5 Presence of coronary angioplasty implant and graft; Z82.49 Family history of ischemic heart disease and other diseases of the circulatory system
CPT/HCPCS: 93005; 99285; 96361; 96375; 96365; 36415 ×2; 82553 ×2; 82550 ×2; 83690; 85025; 80053; 81001; 84484 ×2; 80307; 87491; 87591; 93017; 76870; 93976; 78452; 71275; 74177; 93010; G0378 ×3; A9500; J2785; J1644; J3010; J1885; J2270; J2405; J7030 ×2; J0696; J1956; J0280; Q9969

== ENCOUNTER 2016-10-20 15:56 | Emergency (ER) | payer OTHER, MEDICAID ==
[2016-10-20 16:05] VITALS: BP 115/66
--- NOTE | 2016-11-11 15:22 | ER Document Report ---
ED GI/ - General Chief Complaint: Groin Pain Stated Complaint: WEAKNESS Time Seen by Provider: 10/20/16 16:13 Mode of Arrival: Wheelchair Information source: Patient TRAVEL OUTSIDE OF THE [place] IN LAST 30 DAYS: No - HPI Patient complains to provider of: Groin pain - Pt . with c/o L groin pain for the past several days. Also, c/o weakness - Related Data Allergies/Adverse Reactions: bee pollen [Bee Pollen] Allergy (Mild, Verified 10/20/16 16:07) propoxyphene napsylate [From Darvocet-N 100] Adverse Reaction (Intermediate, Verified 10/20/16 16:07) GI upset Past Medical History - General Information source: Patient - Social History Smoking Status: Current Every Day Smoker Cigarette use (# per day): Yes Chew tobacco use (# tins/day): No Smoking Education Provided: Yes Frequency of alcohol use: Occasional Drug Abuse: Marijuana Family History: Reviewed & Not Pertinent Patient has suicidal ideation: No Patient has homicidal ideation: No - Past Medical History Cardiac Medical History: Reports: Hx Heart Attack Denies: Hx Coronary Artery Disease, Hx Hypertension Pulmonary Medical History: Denies: Hx Asthma, Hx Bronchitis, Hx COPD, Hx Pneumonia Neurological Medical History: Reports: Hx Migraine. Denies: Hx Cerebrovascular Accident, Hx Seizures Renal/ Medical History: Reports: Hx Kidney Stones. Denies: Hx Peritoneal Dialysis Musculoskeltal Medical History: Denies Hx Arthritis Past Surgical History: Reports: Hx Coronary Stent, Hx Orthopedic Surgery - Left rotator cuff, August 27 2015 - Immunizations Hx Diphtheria, Pertussis, Tetanus Vaccination: Yes Review of Systems - Review of Systems Constitutional: No symptoms reported EENT: No symptoms reported Cardiovascular: No symptoms reported Respiratory: No symptoms reported Genitourinary: See HPI, Pain -: Yes All other systems reviewed and negative Physical Exam - Vital signs Vitals: Temp Pulse Resp BP Pulse Ox 98.1 F 60 16 115/66 97 10/20/16 16:00 10/20/16 16:00 10/20/16 16:00 10/20/16 16:00 10/20/16 16:00 - General General appearance: Appears well In distress: None - Respiratory Respiratory status: No respiratory distress Breath sounds: Normal - Cardiovascular Rhythm: Regular Heart sounds: Normal auscultation - Abdominal Inspection: Normal Tenderness: Nontender - Genitourinary Inspection: Normal Tenderness: Other - min tenderness L scrotum diffusely without erythema or warmth Course - Vital Signs Vital signs: Temp Pulse Resp BP Pulse Ox 98.1 F 60 16 115/66 97 10/20/16 16:00 10/20/16 16:00 10/20/16 16:00 10/20/16 16:00 10/20/16 16:00 - Diagnostic Test Radiology reviewed: Reports reviewed - hydrocele on U/S Discharge - Discharge Clinical Impression: Hydrocele Condition: Stable Disposition: HOME, SELF-CARE Additional Instructions: rest, take meds as prescribed, return if worse Prescriptions: Oxycodone HCl/Acetaminophen [Percocet 5-325 mg Tablet] 1 tab PO ASDIR PRN #15 tab PRN Reason: Referrals: GRACIE GRAVES PA [Primary Care Provider] - Follow up as needed
== END 2016-10-20 16:41 | disposition home or self-care (01) ==
LOC: ER 15:56
DX: N43.3 Hydrocele, unspecified (principal); R10.30 Lower abdominal pain, unspecified; R53.1 Weakness; F17.210 Nicotine dependence, cigarettes, uncomplicated
CPT/HCPCS: 99283

== ENCOUNTER → 2016-10-21 | Outpatient (CLI) | payer MEDICAID ==
--- NOTE | 2016-10-21 16:33 | RADIOLOGY REPORT (SQ) ---
EXAM DESCRIPTION: U/S SCROTUM W/O DOPPLER COMPLETED DATE/TIME: 10/21/2016 3:58 pm REASON FOR STUDY: EPIDIDMYO-ORCHITIS N45.3 EPIDIDYMO-ORCHITIS COMPARISON: Scrotal ultrasound 10/09/2016, 02/22/2014 TECHNIQUE: Static and realtime dawson scale imaging of the scrotum and testes. Selected color Doppler and spectral images recorded to document blood flow. LIMITATIONS: None. FINDINGS: RIGHT: TESTICLE: Normal size, 3.8 x 2.7 x 2.2 cm in size. Normal echotexture. Normal blood flow. No mass. EPIDIDYMIS: Normal. HYDROCELE OR VARICOCELE: Large right hydrocele similar compared to 02/22/2014 and 10/09/2016 HERNIA OR EXTRA-TESTICULAR MASS: No. OTHER: No other significant finding. LEFT: TESTICLE: Normal size, 2.9 x 2.8 x 2.5 cm in size. Normal echotexture. Normal blood flow. No mass. EPIDIDYMIS: Normal. HYDROCELE OR VARICOCELE: Large left hydrocele similar compared to 02/22/2014 and 10/09/2016. Small left varicocele HERNIA OR EXTRA-TESTICULAR MASS: No. OTHER: No other significant finding. IMPRESSION: No ultrasound evidence of testicular torsion. Large bilateral hydroceles, similar compared to previous exams. TECHNICAL DOCUMENTATION: JOB ID: [id number] [employer]- All Rights Reserved
== END ==
LOC: RAD 14:40
PROVIDERS: ATTEND Internal Medicine Geriatric Medicine
DX: N45.3 Epididymo-orchitis (principal)
CPT/HCPCS: 76870

== ENCOUNTER 2016-11-14 12:47 | Emergency (ER) | payer OTHER, MEDICAID ==
[2016-11-14] MEDS ORDERED: ASPIRIN 81 MG TABLET, CHEWABLE PO ONE (13:06)
[2016-11-14 13:53] LABS: ABSOLUTE BASOPHILS # (AUTO) 0.1 10^3/uL (0.0-0.2); ABSOLUTE EOSINOPHILS # (AUTO) 0.4 10^3/uL (0.0-0.6); ABSOLUTE LYMPHOCYTES (AUTO) 1.4 10^3/uL (0.5-4.7); ABSOLUTE MONOCYTES (AUTO) 0.9 10^3/uL (0.1-1.4); ABSOLUTE NEUT (AUTO) 3.5 10^3/uL (1.7-8.2); BASOPHILS % (AUTO) 1.2 % (0-2); EOSINOPHILS % (AUTO) 6.1 % (0-6); HEMATOCRIT 41.7 % (37.9-51.0); HEMOGLOBIN 14.4 g/dL (13.5-17.0); HGB HCT DIFFERENCE 1.5; LYMPHOCYTES % (AUTO) 22.6 % (13-45); MEAN CORPUSCULAR HEMOGLOBIN 34.8 pg (27.0-33.4); MEAN CORPUSCULAR HGB CONC 34.5 g/dL (32.0-36.0); MEAN CORPUSCULAR VOLUME 101 fl (80-97); MONOCYTES % (AUTO) 14.6 % (3-13); RED BLOOD COUNT 4.13 10^6/uL (4.35-5.55); RED CELL DISTRIBUTION WIDTH 13.9 % (11.5-14.0); SEGMENTED NEUTROPHILS % (AUTO) 55.5 % (42-78); WHITE BLOOD COUNT 6.3 10^3/uL (4.0-10.5)
--- NOTE | 2016-11-14 14:07 | ER Document Report ---
ED General - General Chief Complaint: Testicular Pain Stated Complaint: DIZZINESS Time Seen by Provider: 11/14/16 13:06 Mode of Arrival: Ambulatory Information source: Patient Notes: 61-year-old male with history of testicular pain secondary to large hydroceles presents with complaints of pain rating to his groins. Patient denies any fevers or chills admits nausea secondary to the pain. In the emergency department patient admits to feeling dizzy from the pain TRAVEL OUTSIDE OF THE [place] IN LAST 30 DAYS: No - HPI Onset: Other - Pain for 2-3 weeks Onset/Duration: Persistent Quality of pain: Achy Severity: Mild Pain Level: 1 Associated symptoms: Other Exacerbated by: Denies Relieved by: Denies Similar symptoms previously: Yes Recently seen / treated by doctor: Yes - Related Data Allergies/Adverse Reactions: bee pollen [Bee Pollen] Allergy (Mild, Verified 10/20/16 16:07) propoxyphene napsylate [From Darvocet-N 100] Adverse Reaction (Intermediate, Verified 10/20/16 16:07) GI upset Past Medical History - Social History Smoking Status: Current Every Day Smoker Cigarette use (# per day): Yes Chew tobacco use (# tins/day): No Smoking Education Provided: No Frequency of alcohol use: None Drug Abuse: Marijuana Family History: Reviewed & Not Pertinent - Past Medical History Cardiac Medical History: Reports: Hx Heart Attack Denies: Hx Coronary Artery Disease, Hx Hypertension Pulmonary Medical History: Denies: Hx Asthma, Hx Bronchitis, Hx COPD, Hx Pneumonia Neurological Medical History: Reports: Hx Migraine. Denies: Hx Cerebrovascular Accident, Hx Seizures Renal/ Medical History: Reports: Hx Kidney Stones. Denies: Hx Peritoneal Dialysis Musculoskeltal Medical History: Denies Hx Arthritis Past Surgical History: Reports: Hx Coronary Stent, Hx Orthopedic Surgery - Left rotator cuff, August 27 2015 - Immunizations Hx Diphtheria, Pertussis, Tetanus Vaccination: Yes Review of Systems - Review of Systems Notes: REVIEW OF SYSTEMS: CONSTITUTIONAL : Denies fever, chills, or sweats. Denies recent illness. EENT: Denies eye, ear, throat, or mouth pain or symptoms. Denies nasal or sinus congestion or discharge. Denies throat, tongue, or mouth swelling or difficulty swallowing. CARDIOVASCULAR: Denies chest pain. Denies palpitations or racing or irregular heart beat. Denies ankle edema. RESPIRATORY: Denies cough, cold, or chest congestion. Denies shortness of breath, difficulty breathing, or wheezing. GASTROINTESTINAL: Admits to testicular pain GENITOURINARY: Denies difficulty urinating, painful urination, burning, frequency, blood in urine, or discharge. MUSCULOSKELETAL: Denies back or neck pain or stiffness. Denies joint pain or swelling. SKIN: Denies rash, lesions or sores. HEMATOLOGIC : Denies easy bruising or bleeding. LYMPHATIC: Denies swollen, enlarged glands. NEUROLOGICAL: Admits to dizziness PSYCHIATRIC: Denies anxiety or stress. Denies depression, suicidal ideation, or homicidal ideation. ALL OTHER SYSTEMS REVIEWED AND NEGATIVE. Dictation was performed using [employer] voice recognition software PHYSICAL EXAMINATION: GENERAL: Well-appearing, well-nourished and in no acute distress. HEAD: Atraumatic, normocephalic. EYES: Pupils equal round and reactive to light, extraocular movements intact, sclera anicteric, conjunctiva are normal. ENT: Nares patent, oropharynx clear without exudates. Moist mucous membranes. NECK: Normal range of motion, supple without lymphadenopathy LUNGS: Breath sounds clear to auscultation bilaterally and equal. No wheezes rales or rhonchi. HEART: Regular rate and rhythm without murmurs ABDOMEN: Soft, nontender, nondistended abdomen. No guarding, no rebound. No masses appreciated. Cremaster reflexes intact Musculoskeletal: Normal range of motion, no pitting or edema. No cyanosis. NEUROLOGICAL: Cranial nerves grossly intact. Normal speech, normal gait. Normal sensory, motor exams PSYCH: Normal mood, normal affect. SKIN: Warm, Dry, normal turgor, no rashes or lesions noted. Physical Exam - Vital signs Vitals: Temp Pulse Resp BP Pulse Ox 98.0 F 73 20 132/78 H 100 11/14/16 13:03 11/14/16 13:03 11/14/16 13:03 11/14/16 13:03 11/14/16 13:03 Course - Re-evaluation Re-evalutation: 11/14/16 14:09 Patient is noted to have large hydroceles, patient given pain control 11/14/16 16:26 Otherwise imaging lab with note no significant abnormality I believe the dizziness is secondary to the pain After performing a Medical Screening Examination, I estimate there is LOW risk for INTRACRANIAL HEMORRHAGE, ISCHEMIC CVA, MALIGNANT DYSRHYTHMIA, ACUTE CORONARY SYNDROME, MENINGITIS, PULMONARY EMBOLISM, or SEPSIS thus I consider the discharge disposition reasonable. I have reevaluated this patient multiple times and no significant life threatening changes are noted. The patient and I have discussed the diagnosis and risks, and we agree with discharging home with close follow-up with the understanding that symptoms and presentations can change. We also discussed returning to the Emergency Department immediately if new or worsening symptoms occur. We have discussed the symptoms which are most concerning (e.g., changing or worsening pain, weakness, vomiting, fever) that necessitate immediate return. - Vital Signs Vital signs: Temp Pulse Resp BP Pulse Ox 98.3 F 73 20 112/70 94 11/14/16 16:18 11/14/16 16:18 11/14/16 16:18 11/14/16 16:18 11/14/16 16:18 - Laboratory Result Diagrams: 11/14/16 13:40 11/14/16 13:40 Laboratory results interpreted by me: 11/14/16 13:40 RBC 4.13 L MCV 101 H MCH 34.8 H Monocytes % 14.6 H Eosinophils % 6.1 H Discharge - Discharge Clinical Impression: Orchitis, Testicular pain Condition: Stable Disposition: HOME, SELF-CARE Instructions: Hydrocele ([facility]) Prescriptions: Oxycodone HCl/Acetaminophen [Percocet 5-325 mg Tablet] 1 - 2 tab PO Q4H PRN #25 tablet PRN Reason: Referrals: ANDRA GRIFFITHS MD [ACTIVE STAFF] - Follow up tomorrow
[2016-11-14 14:11] LABS: ALANINE AMINOTRANSFERASE 39 U/L (21-72); ALBUMIN 4.4 g/dL (3.5-5.0); ALKALINE PHOSPHATASE 74 U/L (38-126); ANION GAP 14 (5-19); ASPARTATE AMINO TRANSFERASE 28 U/L (17-59); BILIRUBIN,DIRECT 0.4 mg/dL (0.0-0.4); BILIRUBIN,TOTAL 0.9 mg/dL (0.2-1.3); BLOOD UREA NITROGEN 17 mg/dL (7-20); CARBON DIOXIDE 25 mmol/L (22-30); CHLORIDE 104 mmol/L (98-107); CREATINE KINASE 64 U/L (55-170); CREATININE RESULT 1.07 mg/dL (0.52-1.25); GLUCOSE 94 mg/dL (75-110); POTASSIUM 4.1 mmol/L (3.6-5.0); SODIUM 142.5 mmol/L (137-145); TOTAL PROTEIN 7.3 g/dL (6.3-8.2)
--- NOTE | 2016-11-14 14:14 | RADIOLOGY REPORT (SQ) ---
EXAM DESCRIPTION: CHEST SINGLE VIEW COMPLETED DATE/TIME: 11/14/2016 1:56 pm REASON FOR STUDY: chest pain COMPARISON: 08/16/2016 EXAM PARAMETERS: NUMBER OF VIEWS: One view. TECHNIQUE: Single frontal radiographic view of the chest acquired. RADIATION DOSE: NA LIMITATIONS: None. FINDINGS: LUNGS AND PLEURA: No opacities, masses or pneumothorax. No pleural effusion. MEDIASTINUM AND HILAR STRUCTURES: No masses. Contour normal. HEART AND VASCULAR STRUCTURES: Heart normal in size. Normal vasculature. BONES: No acute findings. HARDWARE: None in the chest. OTHER: No other significant finding. IMPRESSION: NO ACUTE RADIOGRAPHIC FINDING IN THE CHEST. TECHNICAL DOCUMENTATION: JOB ID: [id number]
[2016-11-14 14:22] LABS: CREATINE KINASE MB 0.76 ng/mL (<4.55)
[2016-11-14 14:23] LABS: TROPONIN I < 0.012 ng/mL
--- NOTE | 2016-11-14 14:40 | RADIOLOGY REPORT (SQ) ---
EXAM DESCRIPTION: CT LTD RENAL STONE PROTOCOL ON COMPLETED DATE/TIME: 11/14/2016 2:22 pm REASON FOR STUDY: bed 18 testicular/groin pain COMPARISON: Scrotal ultrasound from 10/21/[address] from 09/03/2011 TECHNIQUE: CT scan of the abdomen and pelvis performed without intravenous or oral contrast. Images reviewed with lung, soft tissue, and bone windows. Reconstructed coronal and sagittal MPR images revi ewed. All images stored on PACS. All CT scanners at this facility use dose modulation, iterative reconstruction, and/or weight based d osing when appropriate to reduce radiation dose to as low as reasonably achievable (ALARA). [facility]: Dose Right [facility]: CareDose [facility]: Dose Right [facility]: Teradose 4D [facility]: Smart [email or web address] RADIATION DOSE: Up-to-date CT equipment and radiation dose reduction techniques were employed. CTDIv ol: 4.8 mGy. DLP: 263 mGy-cm.mGy. LIMITATIONS: None. FINDINGS: LOWER CHEST: No significant findings. No nodules or infiltrates. NON-CONTRASTED LIVER, SPLEEN, ADRENALS: Evaluation limited by lack of IV contrast. No identified sign ificant masses. PANCREAS: No masses. No peripancreatic inflammatory changes. GALLBLADDER: No identified stones by CT criteria. No inflammatory changes to suggest cholecystitis. RIGHT KIDNEY AND URETER: No suspicious masses. Assessment limited by lack of IV contrast. No signif icant calcifications. No hydronephrosis or hydroureter. LEFT KIDNEY AND URETER: No suspicious masses. Assessment limited by lack of IV contrast. No signifi cant calcifications. No hydronephrosis or hydroureter. AORTA AND RETROPERITONEUM: Atherosclerotic calcifications. No aneurysm. No retroperitoneal masses or adenopathy. BOWEL AND PERITONEAL CAVITY: No obvious masses or inflammatory changes. No free fluid. APPENDIX: Normal. PELVIS, BLADDER, AND ABDOMINAL WALL:No abnormal masses. No free fluid. Bladder normal. BONES: Degenerative change without fracture or suspicious osseous lesion. OTHER: Bilateral testicular hydroceles stable from prior ultrasound. IMPRESSION: NO ACUTE FINDINGS ON THIS NONCONTRAST CT OF THE ABDOMEN AND PELVIS. NO URINARY TRACT CA LCULI OR HYDRONEPHROSIS. STABLE SCROTAL HYDROCELES. COMMENT: Quality ID # [id number]: Final reports with documentation of one or more dose reduction techniques (e.g., Automated exposure control, adjustment of the mA and/or kV according to patient size, use of iterative reconstruction technique) TECHNICAL DOCUMENTATION: JOB ID: [id number] [employer]- All Rights Reserved
[2016-11-14] MEDS ORDERED: OXYCODONE-ACETAMINOPHEN 5-325 MG TABLET PO ONE (16:07)
[2016-11-14 16:19] VITALS: BP 112/70
--- NOTE | 2016-11-14 16:58 | EKG REPORT ---
SEVERITY:- ABNORMAL ECG - SINUS RHYTHM PROBABLE INFERIOR INFARCT, AGE INDETERMINATE : Confirmed by: Bianca Woodward MD 14-Nov-2016 16:56:45
== END 2016-11-14 16:19 | disposition home or self-care (01) ==
LOC: ER 12:47
DX: N45.2 Orchitis (principal); N50.812 Left testicular pain; N50.811 Right testicular pain; R42 Dizziness and giddiness; F17.210 Nicotine dependence, cigarettes, uncomplicated; I25.2 Old myocardial infarction; Z87.442 Personal history of urinary calculi
CPT/HCPCS: 36415; 71010; 76380; 80053; 82550; 82553; 84484; 85025; 93005; 93010; 99285

== ENCOUNTER 2017-08-05 13:38 | Emergency (ER) | payer MEDICAID, OTHER ==
[2017-08-05] MEDS ORDERED: DIPHENHYDRAMINE HCL 50 MG/ML VIAL IV ONE ×2 (14:12→17:54)
[2017-08-05] MEDS ORDERED: FAMOTIDINE INJ/PF 20 MG/2 ML SDV IV ONE (14:12)
[2017-08-05] MEDS ORDERED: METHYLPREDNISOLONE INJ 125 MG/2 ML SDV IV ONE (14:12)
[2017-08-05] MEDS ORDERED: ASPIRIN 81 MG TABLET, CHEWABLE PO ONE (14:13)
[2017-08-05 14:31] LABS: ABSOLUTE BASOPHILS # (AUTO) 0.1 10^3/uL (0.0-0.2); ABSOLUTE EOSINOPHILS # (AUTO) 0.2 10^3/uL (0.0-0.6); ABSOLUTE LYMPHOCYTES (AUTO) 2.3 10^3/uL (0.5-4.7); ABSOLUTE MONOCYTES (AUTO) 0.6 10^3/uL (0.1-1.4); ABSOLUTE NEUT (AUTO) 4.5 10^3/uL (1.7-8.2); BASOPHILS % (AUTO) 0.9 % (0-2); EOSINOPHILS % (AUTO) 2.2 % (0-6); HEMATOCRIT 38.6 % (37.9-51.0); HEMOGLOBIN 13.5 g/dL (13.5-17.0); LYMPHOCYTES % (AUTO) 30.1 % (13-45); MEAN CORPUSCULAR HEMOGLOBIN 35.8 pg (27.0-33.4); MEAN CORPUSCULAR HGB CONC 34.9 g/dL (32.0-36.0); MEAN CORPUSCULAR VOLUME 103 fl (80-97); MONOCYTES % (AUTO) 7.7 % (3-13); PLATELET COUNT 235 10^3/uL (150-450); RED BLOOD COUNT 3.76 10^6/uL (4.35-5.55); RED CELL DISTRIBUTION WIDTH 13.7 % (11.5-14.0); SEGMENTED NEUTROPHILS % (AUTO) 59.1 % (42-78); TOTAL CELLS COUNTED % (AUTO) 100 %; WHITE BLOOD COUNT 7.5 10^3/uL (4.0-10.5)
[2017-08-05 14:48] LABS: ALANINE AMINOTRANSFERASE 25 U/L (21-72); ALBUMIN 4.3 g/dL (3.5-5.0); ALKALINE PHOSPHATASE 70 U/L (38-126); ANION GAP 13 (5-19); ASPARTATE AMINO TRANSFERASE 23 U/L (17-59); BILIRUBIN,DIRECT 0.4 mg/dL (0.0-0.4); BILIRUBIN,TOTAL 0.9 mg/dL (0.2-1.3); BLOOD UREA NITROGEN 17 mg/dL (7-20); CALCIUM 9.6 mg/dL (8.4-10.2); CARBON DIOXIDE 23 mmol/L (22-30); CHLORIDE 106 mmol/L (98-107); GLUCOSE 90 mg/dL (75-110); POTASSIUM 3.9 mmol/L (3.6-5.0); SODIUM 142.1 mmol/L (137-145); TOTAL PROTEIN 6.9 g/dL (6.3-8.2)
--- NOTE | 2017-08-05 14:51 | RADIOLOGY REPORT (SQ) ---
EXAM DESCRIPTION: CHEST SINGLE VIEW COMPLETED DATE/TIME: 08/05/2017 2:29 pm REASON FOR STUDY: chest pain COMPARISON: AP chest 11/14/2016, 08/16/2016 CT abdomen pelvis 10/09/2016 EXAM PARAMETERS: NUMBER OF VIEWS: One view. TECHNIQUE: Single frontal radiographic view of the chest acquired. RADIATION DOSE: NA LIMITATIONS: None. FINDINGS: LUNGS AND PLEURA: No opacities, masses or pneumothorax. No pleural effusion. MEDIASTINUM AND HILAR STRUCTURES: No masses. Contour normal. HEART AND VASCULAR STRUCTURES: Heart normal in size. Normal vasculature. BONES: No acute findings. HARDWARE: None in the chest. OTHER: No other significant finding. IMPRESSION: NO ACUTE RADIOGRAPHIC FINDING IN THE CHEST. TECHNICAL DOCUMENTATION: JOB ID: [id number] [employer]- All Rights Reserved Reading location - IP/workstation name: [email or web address]
[2017-08-05] MEDS ORDERED: NORMAL SALINE 1000 ML 1,000 ML IV ONE (15:10)
--- NOTE | 2017-08-05 15:10 | ER Document Report ---
ED General - General Chief Complaint: Allergic Reaction Stated Complaint: POSSIBLE ALLERGIC REACTION Time Seen by Provider: 08/05/17 14:08 Mode of Arrival: Ambulatory Information source: Patient Notes: 61-year-old male presents emergency department status post bee sting. Patient states that he was outside when he was stung on his left hand. 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 He did have an EpiPen on hand. He injected himself. Patient then came to the emergency department for evaluation. Patient states that he was having some chest pain and shortness of breath after injecting the epi. He states that this is resolving. Patient does have a history of coronary artery disease. He does have a history of stent placement. He states that this was done in [place]. TRAVEL OUTSIDE OF THE [place] IN LAST 30 DAYS: No - HPI Onset: Just prior to arrival Onset/Duration: Sudden Quality of pain: Achy Severity: Mild Associated symptoms: Chest pain, Shortness of breath Exacerbated by: Denies Relieved by: Denies Similar symptoms previously: Yes Recently seen / treated by doctor: No - Related Data Allergies/Adverse Reactions: bee pollen [Bee Pollen] Allergy (Mild, Verified 08/05/17 13:41) levofloxacin [From Levaquin] Allergy (Verified 08/05/17 13:41) propoxyphene napsylate [From Darvocet-N 100] Adverse Reaction (Intermediate, Verified 08/05/17 13:41) GI upset Past Medical History - General Information source: Patient - Social History Smoking Status: Current Every Day Smoker Family History: Reviewed & Not Pertinent Patient has suicidal ideation: No Patient has homicidal ideation: No - Past Medical History Cardiac Medical History: Reports: Hx Heart Attack Denies: Hx Coronary Artery Disease, Hx Hypertension Pulmonary Medical History: Denies: Hx Asthma, Hx Bronchitis, Hx COPD, Hx Pneumonia Neurological Medical History: Reports: Hx Migraine. Denies: Hx Cerebrovascular Accident, Hx Seizures Renal/ Medical History: Reports: Hx Kidney Stones. Denies: Hx Peritoneal Dialysis Musculoskeltal Medical History: Denies Hx Arthritis Past Surgical History: Reports: Hx Coronary Stent, Hx Orthopedic Surgery - Left rotator cuff, August 27 2015 - Immunizations Hx Diphtheria, Pertussis, Tetanus Vaccination: Yes Review of Systems - Review of Systems Constitutional: No symptoms reported EENT: No symptoms reported Cardiovascular: Chest pain Respiratory: Short of breath Gastrointestinal: No symptoms reported Genitourinary: No symptoms reported Musculoskeletal: No symptoms reported Skin: Other - Bee sting left wrist Neurological/Psychological: No symptoms reported -: Yes All other systems reviewed and negative Physical Exam - Vital signs Vitals: Resp BP Pulse Ox 19 100/72 95 08/05/17 13:50 08/05/17 13:50 08/05/17 13:50 - Notes Notes: PHYSICAL EXAMINATION: GENERAL: Well-appearing, well-nourished and in no acute distress. HEAD: Atraumatic, normocephalic. EYES: Pupils equal round and reactive to light, extraocular movements intact, sclera anicteric, conjunctiva are normal. ENT: Nares patent, oropharynx clear without exudates. Moist mucous membranes. NECK: Normal range of motion, supple without lymphadenopathy LUNGS: Breath sounds clear to auscultation bilaterally and equal. No wheezes rales or rhonchi. HEART: Regular rate and rhythm without murmurs ABDOMEN: Soft, nontender, nondistended abdomen. No guarding, no rebound. No masses appreciated. Musculoskeletal: Normal range of motion, no pitting or edema. No cyanosis. NEUROLOGICAL: Cranial nerves grossly intact. Normal speech, normal gait. Normal sensory, motor exams PSYCH: Normal mood, normal affect. SKIN: Warm, Dry, normal turgor, no rashes or lesions noted. Course - Re-evaluation Re-evalutation: 08/05/17 18:10 Patient monitored in the emergency department for 4 hours. Patient has been improving. On reevaluation, patient's vital signs are stable. Patient's symptoms have resolved. Patient had 2 sets of cardiac enzymes done that were normal. Patient feels comfortable with discharge home and following up with his primary care physician this week. I instructed patient to continue taking his medications as directed and to return to the emergency department for any worsening symptoms. Patient is agreeable with plan of care. - Vital Signs Vital signs: Temp Pulse Resp BP Pulse Ox 98.2 F 85 19 99/69 L 98 08/05/17 13:55 08/05/17 13:55 08/05/17 18:00 08/05/17 18:00 08/05/17 18:00 - Laboratory Result Diagrams: 08/05/17 14:18 08/05/17 14:18 Laboratory results interpreted by me: 08/05/17 14:18 RBC 3.76 L MCV 103 H MCH 35.8 H - EKG Interpretation by Me Additional EKG results interpreted by me: 08/05/17 15:09 EKG: Ventricular rate 64, SC interval 152, castration 86, QTc 425, normal sinus rhythm, no ischemic changes. EKG is similar to that done on 11/14/16. Discharge - Discharge Clinical Impression: Bee sting Qualifiers: Encounter type: initial encounter Injury intent: accidental or unintentional Qualified Code(s): T63.441A - Toxic effect of venom of bees, accidental ( unintentional), initial encounter Allergic reaction Qualifiers: Encounter type: initial encounter Qualified Code(s): T78.40XA - Allergy, unspecified, initial encounter Condition: Good Disposition: HOME, SELF-CARE Instructions: Acute Allergic Reaction ([facility]) Referrals: MARISABEL LOVE MD [ACTIVE STAFF] - Follow up as needed
[2017-08-05 18:07] VITALS: BP 99/69
--- NOTE | 2017-08-06 00:18 | EKG REPORT ---
SEVERITY:- NORMAL ECG - SINUS RHYTHM : Confirmed by: Bianca Woodward MD 06-Aug-2017 00:17:07
== END 2017-08-05 18:34 | disposition home or self-care (01) ==
LOC: ER 13:38
DX: T63.441A Toxic effect of venom of bees, accidental (unintentional), initial encounter (principal); X58.XXXA Exposure to other specified factors, initial encounter; F17.200 Nicotine dependence, unspecified, uncomplicated; I25.2 Old myocardial infarction; Z87.442 Personal history of urinary calculi; Z88.3 Allergy status to other anti-infective agents
CPT/HCPCS: 93005; 96376; 99284; 96361; 96374; 96375; 36415; 85025; 80053; 84484; 71045; 93010; J1200; J2930; J7030; S0028

== ENCOUNTER 2018-02-03 05:22 | Day surgery (SDC) | payer OTHER ==
[2018-01-27 09:10] LABS: APPEARANCE,URINE SLIGHTLY-CLOUDY; BILIRUBIN,URINE NEGATIVE (NEGATIVE); COLOR,URINE YELLOW; GLUCOSE, URINE NEGATIVE (NEGATIVE); KETONES,URINE NEGATIVE (NEGATIVE); LEUKOCYTE ESTERASE,URINE NEGATIVE (NEGATIVE); NITRITE,URINE NEGATIVE (NEGATIVE); PROTEIN,URINE NEGATIVE (NEGATIVE); URINE SPECIFIC GRAVITY 1.017; UROBILINOGEN,URINE NEGATIVE mg/dL (<2.0)
[2018-01-27 09:12] LABS: HEMATOCRIT 41.2 % (37.9-51.0); MEAN CORPUSCULAR HEMOGLOBIN 35.8 pg (27.0-33.4); MEAN CORPUSCULAR HGB CONC 34.1 g/dL (32.0-36.0); MEAN CORPUSCULAR VOLUME 105 fl (80-97); PLATELET COUNT 252 10^3/uL (150-450); RED BLOOD COUNT 3.92 10^6/uL (4.35-5.55); RED CELL DISTRIBUTION WIDTH 13.9 % (11.5-14.0); WHITE BLOOD COUNT 8.6 10^3/uL (4.0-10.5)
[2018-01-27 09:40] LABS: ANION GAP 7 (5-19); BLOOD UREA NITROGEN 16 mg/dL (7-20); CALCIUM 9.5 mg/dL (8.4-10.2); CARBON DIOXIDE 28 mmol/L (22-30); CHLORIDE 107 mmol/L (98-107); GLUCOSE 89 mg/dL (75-110); POTASSIUM 4.4 mmol/L (3.6-5.0); SODIUM 141.7 mmol/L (137-145)
--- NOTE | 2018-01-27 10:06 | RADIOLOGY REPORT (SQ) ---
EXAM DESCRIPTION: CHEST PA/LATERAL COMPLETED DATE/TIME: 01/27/2018 9:02 am REASON FOR STUDY: PRE OP COMPARISON: Chest films 08/05/2017, 11/05/2015 EXAM PARAMETERS: NUMBER OF VIEWS: two views TECHNIQUE: Digital Frontal and Lateral radiographic views of the chest acquired. RADIATION DOSE: NA LIMITATIONS: none FINDINGS: LUNGS AND PLEURA: No opacities, masses or pneumothorax. No pleural effusion. MEDIASTINUM AND HILAR STRUCTURES: No masses or contour abnormalities. HEART AND VASCULAR STRUCTURES: Heart normal size. No evidence for failure. BONES: No acute findings. Disc space loss of height in the mid and lower thoracic spine HARDWARE: None in the chest. OTHER: No other significant finding. IMPRESSION: NO SIGNIFICANT RADIOGRAPHIC FINDING IN THE CHEST. TECHNICAL DOCUMENTATION: JOB ID: [id number] [employer]- All Rights Reserved Reading location - IP/workstation name: [email or web address]
--- NOTE | 2018-01-27 13:09 | EKG REPORT ---
SEVERITY:- OTHERWISE NORMAL ECG - SINUS RHYTHM BORDERLINE LEFT AXIS DEVIATION : Confirmed by: David Milton MD 27-Jan-2018 13:08:00
[~2018-02-03 05:22] MED LIST: CEFAZOLIN SODIUM 2 GM in DEXTROSE 5%-WATER 100 ML IV PRN; LACTATED RINGERS 1000 ML IV PRN; LIDOCAINE 0.5% INJ-PF (5 MG/ML) 50 ML SDV SUBCUT PRN
[2018-02-03 06:21] LABS: INTERNATIONAL RATION (INR) 0.91; PROTHROMBIN TIME 12.7 SEC (11.4-15.4)
[2018-02-03 06:22] LABS: PARTIAL THROMBOPLASTIN TIME 28.7 SEC (23.5-35.8)
[2018-02-03] MEDS ORDERED: MIDAZOLAM 2 MG/2 ML INJ ONE (06:52)
[2018-02-03] MEDS ORDERED: FENTANYL CITRATE INJ/PF 100 MCG/2 ML AMPUL ONE (06:52)
[2018-02-03] MEDS ORDERED: LIDOCAINE 2% INJ-PF (20 MG/ML) 10 ML AMPUL ONE (06:53)
[2018-02-03] MEDS ORDERED: PROPOFOL INJ 200 MG/20 ML VIAL IV ONE (06:53)
[2018-02-03] MEDS ORDERED: LIDOCAINE 1% INJ-PF (10 MG/ML) 30 ML SDV ONE (07:13)
[2018-02-03] MEDS ORDERED: MORPHINE SULFATE 10 MG/ML INJ IV PRN ×2 (07:36→08:13)
[2018-02-03] MEDS ORDERED: PROMETHAZINE HCL INJ 25 MG/1 ML VIAL IV PRN ×2 (07:36)
[2018-02-03] MEDS ORDERED: FENTANYL CITRATE INJ/PF 100 MCG/2 ML AMPUL IV PRN ×3 (07:36)
[2018-02-03] MEDS ORDERED: MEPERIDINE HCL/PF INJ 25 MG/1 ML DISP.SYRIN IV PRN (07:36)
[2018-02-03] MEDS ORDERED: DIPHENHYDRAMINE HCL 50 MG/ML VIAL IV PRN (07:36)
[2018-02-03] MEDS ORDERED: OXYCODONE-ACETAMINOPHEN 5-325 MG TABLET PO PRN ×2 (07:36)
[2018-02-03] MEDS ORDERED: HYDROCODONE/ACETAMINOPHEN 5-325 MG TABLET PO PRN (08:13)
--- NOTE | 2018-02-03 08:16 | Operative Report ---
Operative Report DATE OF SURGERY: 02/03/18 PREOPERATIVE DIAGNOSIS: 1. Left open carpal tunnel syndrome. 2. Left middle tr igger finger POSTOPERATIVE DIAGNOSIS: Same OPERATION: Left open carpal tunnel release w/ Flexor tenosynovectomy. Left A1 osmar release middle finger w/ sublumis resection SURGEON: ANAM ROBERTS ANESTHESIA: LMAC COMPLICATIONS: None ESTIMATED BLOOD LOSS: Minimal PROCEDURE: Indication for above procedure: 62-year-old male who developed stiffness along with numbness and tingling in his left hand. Patient sustained a heart attack approximately 1 year ago ever since then has been having stiffness and pain. Patient electrodiagnostic testing demonstrating carpal tunnel syndrome along with clinical examination findings of middle finger trigger digit. We attempted all conservative measures including occupational therapy, injections and bracing without resolution of patient's symptoms. At that point decision was made to proceed with operative intervention. Procedure In Detail: Patient was seen and evaluated in the preoperative holding area. The LEFT upper extremity was initialized and marked. Patient received Ancef IV for bacterial prophylaxis. Patient was taken back to the operative room where transferred operative table. Patient was then placed under MAC anesthesia. Once adequately anesthetized, a nonsterile tourniquet was placed on the upper extremity. A surgical team debriefing was performed ensuring all instrumentation was available, the surgical procedure was discussed with possible concerns reviewed. Skin was prepped with alcohol and 10cc of 1% lidocaine without epinephrine was injected locally and w/in carpal canal and middle A1 osmar. The upper extremity was prepped with chlorhexidine and alcohol and draped in a sterile fashion. A timeout was done identifying correct patient, procedure and extremity everyone in attendance agree with this and verbalized no concerns.The extremity was then exsanguinated the tourniquet was inflated to 250 mmHg. Longitudinal skin incision was made in line with the radial border of the ring finger just proximal to Morales's cardinal line and distal to the wrist flexion crease. The palmar fascia was then incised in line with the skin incision. Transverse carpal ligament was then identified. Along its ulnar border the transverse carpal ligament was first released distally at the adipose protecting the superficial palmar arch. Under direct visualization the proximal aspect of the transverse carpal ligament and volar antebrachial fascia was released. Inspection of the carpal tunnel contents demonstrate moderate tenosynovitis. Flexor tenosynovectomy was performed. Recurrent motor branch was identified. There was significant compression of the median nerve at the midportion of the carpal canal with notable hyperemia and hourglassing of the nerve at this level. The wound was then copiously irrigated with normal saline. Skin was closed with horizontal mattress sutures. Longitudinal skin incision was made centered over the A1 osmar of the left middle finger. The radial and ulnar neurovascular bundles were identified and retracted from the wound. The A1 osmar was identified and incised. The A1 osmar was released to the level of the A2 osmar but not through the A2 osmar. The palmar aponeurotic osmar was released proximal to the A1 osmar. There was notable fraying of the radial slip of the sublimis. Patient continued to have tightness without residual locking. Thus given the fraying and disruption of the sublimis radial slip this was retracted from the wound and released. The wound was then copiously irrigated with normal saline. Skin was closed with interrupted 4-0 nylon suture. Wound was dressed with Xeroform and a soft dressing. Sponge counts, instrument counts, needle counts counts were correct. Patient was then awoken from anesthesia. Transferred from the operating room table to the operating room stretcher. There was no intraoperative complications patient tolerated procedure well stable to PACU. Postoperative plan: Patient will follow-up as scheduled for wound check. They will call with any questions or concerns.
[2018-02-03] MEDS ORDERED: KETOROLAC TROMETHAMINE 60 MG/2 ML SDV ONE (08:20)
[2018-02-03 09:48] VITALS: BP 109/63
--- NOTE | 2018-02-08 12:36 | Discharge Summary ---
Discharge Summary ([facility]) - Discharge Final Diagnosis: Left carpal tunnel syndrome Left middle trigger finger Date of Surgery: 02/03/18 Discharge Date: 02/03/18 Condition: Good Treatment or Instructions: Schedule Follow Up w/ Dr. Zak Villagomez @ [facility] to be seen in 10-14 days or as scheduled [place]: [place]: [place]: May remove dressing on postop day #3, keep incision covered and dry. Ice and elevate May begin finger range of motion attempting to make full fist. Stool softener of choice when on pain medication. Prescriptions: Hydrocodone/Acetaminophen [[place] 5-325 mg Tablet] 1 tab PO Q6 PRN #12 tablet PRN Reason: [facility]errals: [facility] - Discharge Diet: As Tolerated Respiratory Treatments at Home: Deep Breathing/Coughing Discharge Activity: No Lifting Over 10 Pounds, No Lifting/Push/Pulling Report the Following to Your Physician Immediately: Fever over 101 Degrees, Unusual Bleeding, Redness, Swelling, Warmth
== END 2018-02-03 09:45 | disposition home or self-care (01) ==
LOC: OROUT 05:22
PROVIDERS: ATTEND Orthopaedic Surgery
DX: M65.332 Trigger finger, left middle finger (principal); G56.02 Carpal tunnel syndrome, left upper limb; F17.210 Nicotine dependence, cigarettes, uncomplicated; M19.90 Unspecified osteoarthritis, unspecified site; J44.9 Chronic obstructive pulmonary disease, unspecified; I25.2 Old myocardial infarction; I10 Essential (primary) hypertension; Z86.73 Personal history of transient ischemic attack (TIA), and cerebral infarction without residual deficits; Z79.899 Other long term (current) drug therapy; Z88.5 Allergy status to narcotic agent; Z01.818 Encounter for other preprocedural examination
CPT/HCPCS: 93005; 36415 ×2; 85027; 85610; 85730; 80048; 81001; 71046; 93010; 64721; 26055; J2250; J0690; J1885; J3490 ×2; J2704; 1810; J3010

== ENCOUNTER 2018-06-27 20:16 | Observation (INO) | payer OTHER ==
[2018-06-27] MEDS ORDERED: ASPIRIN 81 MG TABLET, CHEWABLE PO ONE (20:21)
--- NOTE | 2018-06-27 20:59 | RADIOLOGY REPORT (SQ) ---
EXAM DESCRIPTION: XR CHEST 1 VIEW COMPLETED DATE/TME: 06/27/2018 20:21 CLINICAL HISTORY: 62 years, Male, CP COMPARISON: Prior study from 01/27/2018 NUMBER OF VIEWS: One TECHNIQUE: Single frontal view of the chest was obtained LIMITATIONS: None. FINDINGS: Cardiac and mediastinal contours are normal. Focal nodular opacity projecting between the right posterior eighth and ninth ribs most likely represents nipple shadow as a similar finding is noted about the contralateral lung. Lungs are otherwise clear. No pleural effusion or pneumothorax. IMPRESSION: No acute disease. Focal nodular opacities projecting about both mid to lower lung zones most likely represent nipple shadows. Consider confirmation with repeat upright PA chest radiograph with nipple markers. copyright 2010 [employer]- All Rights Reserved
[2018-06-27] MEDS ORDERED: ONDANSETRON HCL INJ/PF 4 MG/2 ML SDV IV ONE (21:00)
[2018-06-27] MEDS ORDERED: MORPHINE SULFATE 10 MG/ML INJ IV ONE (21:00)
--- NOTE | 2018-06-27 21:04 | ER Document Report ---
ED Cardiac - General Chief Complaint: Chest Pain Stated Complaint: CHEST PAIN Time Seen by Provider: 06/27/18 20:51 Notes: Patient is a 62-year-old male that comes to the emergency department for chief complaint of chest pain. Chest pain is in the center of his chest, started at rest, started while he was watching TV. He denies radiation, states it feels like a tightness. Reports vague shortness of breath. He also reports a sensation of reflux but states he had the same sensation last time he had a DE in 2016. In 2016 he was transferred to [place] and had stents placed. He follows with the [facility] primary care and cardiology. He continues to smoke tobacco, has a history of hypertension, hyperlipidemia. TRAVEL OUTSIDE OF THE [place] IN LAST 30 DAYS: No - Related Data Allergies/Adverse Reactions: bee pollen [Bee Pollen] Allergy (Mild, Verified 01/26/18 09:25) levofloxacin [From Levaquin] Allergy (Verified 01/26/18 09:25) propoxyphene napsylate [From Darvocet-N 100] Adverse Reaction (Intermediate, Verified 01/26/18 09:25) GI upset Past Medical History - General Information source: Patient - Social History Smoking Status: Current Every Day Smoker Smoking Education Provided: Yes - <3 min Family History: Reviewed & Not Pertinent - Past Medical History Cardiac Medical History: Reports: Hx Heart Attack - Stent placement /DE 2 years ago, Hx Hypercholesterolemia, Hx Hypertension Denies: Hx Coronary Artery Disease Pulmonary Medical History: Reports: Hx COPD Denies: Hx Asthma, Hx Bronchitis, Hx Pneumonia Neurological Medical History: Reports: Hx Migraine. Denies: Hx Cerebrovascular Accident, Hx Seizures Renal/ Medical History: Reports: Hx Kidney Stones. Denies: Hx Peritoneal Dialysis Musculoskeletal Medical History: Denies Hx Arthritis Past Surgical History: Reports: Hx Coronary Stent, Hx Orthopedic Surgery - Left rotator cuff, August 27 2015 - Immunizations Hx Diphtheria, Pertussis, Tetanus Vaccination: Yes Review of Systems - Review of Systems Constitutional: No symptoms reported EENT: No symptoms reported Cardiovascular: See HPI Respiratory: No symptoms reported Gastrointestinal: No symptoms reported Genitourinary: No symptoms reported Male Genitourinary: No symptoms reported Musculoskeletal: No symptoms reported Skin: No symptoms reported Hematologic/Lymphatic: No symptoms reported Neurological/Psychological: See HPI Physical Exam - Vital signs Vitals: Temp Pulse Resp BP Pulse Ox 98.2 F 66 16 105/75 98 06/27/18 20:33 06/27/18 20:33 06/27/18 20:33 06/27/18 20:33 06/27/18 20:33 - Notes Notes: GENERAL: Slightly frail appearing, however nontoxic, not in distress HEAD: Normocephalic, atraumatic. EYES: Pupils equal, round, and reactive to light. Extraocular movements intact. ENT: Oral mucosa moist, tongue midline. Oropharynx unremarkable. Airway patent. NECK: Full range of motion. Supple. Trachea midline. LUNGS: Decreased breath sounds throughout, however no wheezes, rales, or rhonchi. Occasional cough but no tachypnea or respiratory distress. Nontender chest. HEART: Regular rate and rhythm. No murmur ABDOMEN: Soft, non-tender. Non-distended. GENITOURINARY: Deferred EXTREMITIES: Moves all 4 extremities spontaneously. No edema, normal radial and dorsalis pedis pulses bilaterally. No cyanosis. BACK: no cervical, thoracic, lumbar midline tenderness. Normal distal neurovascular exam. NEUROLOGICAL: Alert and oriented x3. Normal speech. Cranial nerves II through XII grossly intact. PSYCH: Normal affect, normal mood. SKIN: Warm, dry, normal turgor. No rashes or lesions noted. Course - Re-evaluation Re-evalutation: On my initial evaluation patient is complaining of pain, when I asked him where his pain is, he states he has a headache. He did take nitroglycerin at home. He reports minimal tightness in the chest but denies current chest pain. Chest x-ray with no acute disease noted. 06/27/18 21:53 Initial troponin is negative. Chemistry unremarkable. CBC with no leukocytosis, some elevation/shift of eosinophils. Patient reevaluated, no current complaints after being given morphine. On reevaluation discussed with patient. Because of his reported history we will cycle troponin, potentially admit for telemetry rule out. Patient is reporting reflux sounding symptoms on this reevaluation, decided to give GI cocktail. Reevaluated him after GI cocktail, patient states no improvement, however he states that he spit up some afterwards and then after this his symptoms resolved again. He has no current symptoms. Patient does specifically state again that his discomfort and burning sensation where the same symptoms he felt when he had the DE in 2016. Initially patient stating he wants to go home and follow-up with cardiology. His is uncomfortable with this, she requests he stay for telemetry observation. Because of his extensive medical history and history of the same symptoms resulting in a heart attack I will discuss with hospitalist. Discussed with Dr. Berman, patient admitted to telemetry observation. Patient states agreement with this plan. - Vital Signs Vital signs: Temp Pulse Resp BP Pulse Ox 98.2 F 66 11 L 111/73 96 06/27/18 20:33 06/27/18 20:33 06/28/18 05:01 06/28/18 05:01 06/28/18 05:01 - Laboratory Result Diagrams: 06/27/18 20:54 06/27/18 20:54 Laboratory results interpreted by me: 06/27/18 20:54 RBC 3.84 L MCV 105 H MCH 35.9 H Eosinophils % 10.1 H Absolute Eosinophils 0.8 H - EKG Interpretation by Me Additional EKG results interpreted by me: EKG shows sinus rhythm at a rate of 69, no T wave inversions or ST segment changes in consecutive leads, QTC of 429, ND interval of 156. Discharge - Discharge Clinical Impression: Chest pain Qualifiers: Chest pain type: unspecified Qualified Code(s): R07.9 - Chest pain, unspecified Condition: Stable Disposition: ADMITTED OBSERVATION Admitting Provider: Cullen (Hospitalist) Unit Admitted: Telemetry
[2018-06-27 21:05] LABS: ABSOLUTE BASOPHILS # (AUTO) 0.1 10^3/uL (0.0-0.2); ABSOLUTE EOSINOPHILS # (AUTO) 0.8 10^3/uL (0.0-0.6); ABSOLUTE LYMPHOCYTES (AUTO) 2.9 10^3/uL (0.5-4.7); ABSOLUTE MONOCYTES (AUTO) 0.8 10^3/uL (0.1-1.4); ABSOLUTE NEUT (AUTO) 3.6 10^3/uL (1.7-8.2); BASOPHILS % (AUTO) 1.1 % (0-2); EOSINOPHILS % (AUTO) 10.1 % (0-6); HEMATOCRIT 40.3 % (37.9-51.0); HEMOGLOBIN 13.8 g/dL (13.5-17.0); LYMPHOCYTES % (AUTO) 35.8 % (13-45); MEAN CORPUSCULAR HEMOGLOBIN 35.9 pg (27.0-33.4); MEAN CORPUSCULAR HGB CONC 34.1 g/dL (32.0-36.0); MEAN CORPUSCULAR VOLUME 105 fl (80-97); MONOCYTES % (AUTO) 9.4 % (3-13); PLATELET COUNT 265 10^3/uL (150-450); RED BLOOD COUNT 3.84 10^6/uL (4.35-5.55); RED CELL DISTRIBUTION WIDTH 13.7 % (11.5-14.0); SEGMENTED NEUTROPHILS % (AUTO) 43.6 % (42-78); TOTAL CELLS COUNTED % (AUTO) 100 %; WHITE BLOOD COUNT 8.1 10^3/uL (4.0-10.5)
[2018-06-27 21:21] LABS: ALANINE AMINOTRANSFERASE 33 U/L (21-72); ALBUMIN 4.1 g/dL (3.5-5.0); ALKALINE PHOSPHATASE 62 U/L (38-126); ANION GAP 8 (5-19); ASPARTATE AMINO TRANSFERASE 24 U/L (17-59); BLOOD UREA NITROGEN 15 mg/dL (7-20); CALCIUM 9.8 mg/dL (8.4-10.2); CARBON DIOXIDE 28 mmol/L (22-30); CHLORIDE 106 mmol/L (98-107); GLUCOSE 86 mg/dL (75-110); POTASSIUM 3.9 mmol/L (3.6-5.0); SODIUM 142.1 mmol/L (137-145)
[2018-06-27 21:22] LABS: BILIRUBIN,DIRECT 0.3 mg/dL (0.0-0.4); BILIRUBIN,TOTAL 0.4 mg/dL (0.2-1.3); CREATINE KINASE 57 U/L (55-170); TOTAL PROTEIN 6.8 g/dL (6.3-8.2)
[2018-06-27 21:33] LABS: CREATINE KINASE MB 0.69 ng/mL (<4.55)
[2018-06-27 21:40] LABS: TROPONIN I < 0.012 ng/mL
[2018-06-28] MEDS ORDERED: LIDOCAINE 2% VISCOUS SOLN 20 ML UDCUP PO ONE (01:42)
[2018-06-28] MEDS ORDERED: MAG HYDROX/AL HYDROX/SIMETH SUSP 30 ML UDCUP PO ONE (01:42)
[2018-06-28] MEDS ORDERED: METOCLOPRAMIDE HCL ORAL SOLN 10 MG/10 ML UDCUP PO ONE (01:42)
[2018-06-28] MEDS ORDERED: NITROGLYCERIN 0.4 MG/TAB 25 TAB/BOTTLE SL PRN (04:06)
[2018-06-28] MEDS ORDERED: ACETAMINOPHEN 325 MG TABLET PO PRN (04:07)
[2018-06-28] MEDS ORDERED: DEXTROSE 40% GEL 15 GM TUBE PO PRN ×2 (04:07)
[2018-06-28] MEDS ORDERED: GLUCAGON,HUMAN RECOMB 1 MG INJ SUBCUT PRN (04:07)
[2018-06-28] MEDS ORDERED: DEXTROSE 50%-WATER 25 GM/50 ML DISP.SYRIN IV PRN ×2 (04:07)
--- NOTE | 2018-06-28 06:10 | PDOC H&P ---
History of Present Illness Admission Date/PCP: 06/28/18 03:12 [facility] Patient complains of: Chest pain History of Present Illness: ESTRELLA RODRIGUEZ is a 62 year old male with a past medical history of COPD, tobacco dependence, hypertension, coronary artery disease with stent x1, tobacco dependence, hypertension and dyslipidemia. He presents with 4 hours of re trosternal chest pain which radiates to the left arm. Patient is somewhat unclear regarding the characterization of pain and does include burning radiating to the jaw with 3 out of 5 intensity lasting 30 minutes but alleviated by rest and GI cocktail. In the emergency room he has an unremarkable work-up no recent stress test. He is referred to the hospitalist for observation. Patient denies recent change of medications he is a account assistant part-time which does not provoke chest pain. Past Medical History Cardiac Medical History: Reports: Myocardial Infarction - Stent placement /[place] 2 years ago, Hyperlipidema, Hypertension Denies: Coronary Artery Disease Pulmonary Medical History: Reports: Chronic Obstructive Pulmonary Disease (COPD) Denies: Asthma, Bronchitis, Pneumonia Neurological Medical History: Reports: Migraine Denies: Seizures Musculoskeltal Medical History: Denies: Arthritis Hematology: Denies: Anemia Past Surgical History Past Surgical History: Reports: Coronary Stent, Orthopedic Surgery - Left rotator cuff, August 27 2015 Social History Information Source: Patient Smoking Status: Current Every Day Smoker Frequency of Alcohol Use: Occasional Hx Recreational Drug Use: No Drugs: Marijuana Hx Prescription Drug Abuse: No - Advance Directive Resuscitation Status: Full Code Family History Family History: COPD Parental Family History Reviewed: Yes Children Family History Reviewed: Yes Sibling(s) Family History Reviewed.: Yes Medication/Allergy Home Medications: Epinephrine [Epipen] 0.3 mg IJ ASDIR PRN #1 auto.injct 08/16/16 Aspirin [Aspirin 81 mg Chewable Tablet] 81 mg PO DAILY 10/09/16 Atorvastatin Calcium 80 mg PO QHS 10/09/16 Ticagrelor [Brilinta 90 mg Tablet] 90 mg PO Q12 10/09/16 Nitroglycerin [Nitrostat 0.4 mg (1/150 Gr) Tabs 25/Bottle] 1 tab SL Q5MP PRN 10/10/16 Multivit with Iron,Minerals [Compete] 1 each PO DAILY 01/26/18 Hydrocodone/Acetaminophen [Adams 5-325 mg Tablet] 1 tab PO Q6 PRN #12 tablet 02/03/18 Allergies/Adverse Reactions: bee pollen [Bee Pollen] Allergy (Mild, Verified 01/26/18 09:25) levofloxacin [From Levaquin] Allergy (Verified 01/26/18 09:25) propoxyphene napsylate [From Darvocet-N 100] Adverse Reaction (Intermediate, Verified 01/26/18 09:25) GI upset Review of Systems Constitutional: ABSENT: chills, fever(s), headache(s), weight gain, weight loss Eyes: ABSENT: visual disturbances Ears: ABSENT: hearing changes Cardiovascular: ABSENT: chest pain, dyspnea on exertion, edema, orthropnea, palpitations Respiratory: ABSENT: cough, hemoptysis Gastrointestinal: ABSENT: abdominal pain, constipation, diarrhea, hematemesis, hematochezia, nausea, vomiting Genitourinary: ABSENT: dysuria, hematuria Musculoskeletal: ABSENT: joint swelling Integumentary: ABSENT: rash, wounds Neurological: ABSENT: abnormal gait, abnormal speech, confusion, dizziness, focal weakness, syncope Psychiatric: ABSENT: anxiety, depression, homidical ideation, suicidal ideation Endocrine: ABSENT: cold intolerance, heat intolerance, polydipsia, polyuria Hematologic/Lymphatic: ABSENT: easy bleeding, easy bruising Physical Exam Vital Signs: Temp Pulse Resp BP Pulse Ox 98.2 F 66 11 L 111/73 96 06/27/18 20:33 06/27/18 20:33 06/28/18 05:01 06/28/18 05:01 06/28/18 05:01 Intake & Output 06/26/18 06/27/18 06/28/18 11:59 11:59 11:59 Weight 52.5 kg General appearance: PRESENT: no acute distress, well-developed, well-nourished Head exam: PRESENT: atraumatic, normocephalic Eye exam: PRESENT: conjunctiva pink, EOMI, PERRLA. ABSENT: scleral icterus Ear exam: PRESENT: normal external ear exam Mouth exam: PRESENT: moist, tongue midline Neck exam: ABSENT: carotid bruit, JVD, lymphadenopathy, thyromegaly Respiratory exam: PRESENT: crackles, decreased breath sounds, prolonged expiratory phas. ABSENT: rales, rhonchi, wheezes Cardiovascular exam: PRESENT: RRR. ABSENT: diastolic murmur, rubs, systolic murmur Pulses: PRESENT: normal dorsalis pedis pul Vascular exam: PRESENT: normal capillary refill GI/Abdominal exam: PRESENT: normal bowel sounds, soft. ABSENT: distended, guarding, mass, organolmegaly, rebound, tenderness Rectal exam: PRESENT: deferred Extremities exam: PRESENT: full ROM. ABSENT: calf tenderness, clubbing, pedal edema Neurological exam: PRESENT: alert, awake, oriented to person, oriented to place, oriented to time, oriented to situation, CN II-XII grossly intact. ABSENT: motor sensory deficit Psychiatric exam: PRESENT: appropriate affect, normal mood. ABSENT: homicidal ideation, suicidal ideation Skin exam: PRESENT: dry, intact, warm. ABSENT: cyanosis, rash Results Laboratory Results: 06/27/18 20:54 06/27/18 20:54 06/27/18 06/27/18 20:54 20:54 WBC 8.1 RBC 3.84 L Hgb 13.8 Hct 40.3 MCV 105 H MCH 35.9 H MCHC 34.1 RDW 13.7 Plt Count 265 Seg Neutrophils % 43.6 Lymphocytes % 35.8 Monocytes % 9.4 Eosinophils % 10.1 H Basophils % 1.1 Absolute Neutrophils 3.6 Absolute Lymphocytes 2.9 Absolute Monocytes 0.8 Absolute Eosinophils 0.8 H Absolute Basophils 0.1 Sodium 142.1 Potassium 3.9 Chloride 106 Carbon Dioxide 28 Anion Gap 8 BUN 15 Creatinine 1.00 Est GFR ( Amer) > 60 Est GFR (Non-Af Amer) > 60 Glucose 86 Calcium 9.8 Total Bilirubin 0.4 AST 24 ALT 33 Alkaline Phosphatase 62 Total Protein 6.8 Albumin 4.1 06/27/18 06/27/18 06/28/18 20:54 20:54 00:45 Creatine Kinase 57 CK-MB (CK-2) 0.69 Troponin I < 0.012 Cancelled 06/28/18 01:30 Creatine Kinase CK-MB (CK-2) Troponin I < 0.012 Impressions: Chest X-Ray 06/27/18 20:21 IMPRESSION: No acute disease. Focal nodular opacities projecting about both mid to lower lung zones most likely represent nipple shadows. Consider confirmation with repeat upright PA chest radiograph with nipple markers. copyright 2010 [employer] All Rights Reserved Assessment and Plan - Diagnosis (1) Chest pain Qualifiers: Chest pain type: unspecified Qualified Code(s): R07.9 - Chest pain, unspecified Is this a current diagnosis for this admission?: Yes Plan: Atypical chest pain though the patient's pain is atypical there are multiple risk factors for coronary artery disease and subsequently will observe and evaluation of acute coronary syndrome versus coronary artery disease with anginal equivalents. Cardiac monitoring blood pressure Q6 hours ,TSH, lipid profile, serial cardiac enzymes and cardiac stress test (2) Tobacco abuse Is this a current diagnosis for this admission?: Yes Plan: Tobacco Dependence patient received tobacco cessation counseling and offered nicotine replacement options - Time Time Spent with patient: 25-34 minutes
[2018-06-28] MEDS: LOSARTAN POTASSIUM 50 MG TABLET PO SCH ×2 (09:09→21:29)
[2018-06-28] MEDS: TICAGRELOR 90 MG TABLET PO SCH ×2 (09:16→21:29)
[2018-06-28] MEDS: FAMOTIDINE 20 MG TABLET PO SCH ×2 (09:16→17:56)
[2018-06-28] MEDS ORDERED: ASPIRIN 81 MG TABLET, CHEWABLE PO SCH (10:00)
--- NOTE | 2018-06-28 10:24 | EKG REPORT ---
SEVERITY:- BORDERLINE ECG - SINUS RHYTHM BORDERLINE LEFT AXIS DEVIATION BORDERLINE INFERIOR Q WAVES : Confirmed by: Jeremie Rivera 28-Jun-2018 10:23:28
[2018-06-28] MEDS ORDERED: ALBUTEROL SULFATE HFA (90 MCG/PUFF) 200 PUFF/8.5 GM MDI IH PRN (13:01)
[2018-06-28] MEDS ORDERED: OLODATEROL HCL IH SCH (14:00)
[2018-06-28] MEDS ORDERED: ATORVASTATIN CALCIUM 80 MG TABLET PO SCH ×2 (22:00)
--- NOTE | 2018-06-28 23:39 | EKG REPORT ---
SEVERITY:- BORDERLINE ECG - SINUS BRADYCARDIA BORDERLINE LEFT AXIS DEVIATION BORDERLINE INFERIOR Q WAVES MINIMAL ST ELEVATION, ANTERIOR LEADS : Confirmed by: Jeremie Rivera 28-Jun-2018 23:37:40
[2018-06-29] MEDS: LOSARTAN POTASSIUM 50 MG TABLET PO SCH (09:50)
[2018-06-29] MEDS: TICAGRELOR 90 MG TABLET PO SCH (09:52)
[2018-06-29] MEDS: FAMOTIDINE 20 MG TABLET PO SCH (09:52)
[2018-06-29] MEDS ORDERED: CYANOCOBALAMIN (VITAMIN B-12) 1,000 MCG TABLET PO SCH (10:00)
[2018-06-29] MEDS ORDERED: CHOLECALCIFEROL (D3) 1,000 UNIT TABLET PO SCH (10:00)
[2018-06-29] MEDS ORDERED: ASPIRIN 81 MG TABLET, ENT COATED PO SCH (10:00)
[2018-06-29] MEDS ORDERED: MULTIVITAMINS W-IRON TABLET, CHEWABLE PO SCH (10:00)
[2018-06-29] MEDS ORDERED: MULTIVIT WITH IRON MINERALS PO SCH (10:00)
[2018-06-29] MEDS ORDERED: REGADENOSON INJ 0.4 MG/5 ML DISP.SYRIN IV ONE (13:32)
[2018-06-29 16:17] LABS: FREE T3 3.38 pg/mL (2.77-5.27); FREE T4 (FREE THYROXINE) 1.16 ng/dL (0.78-2.19)
[2018-06-29 16:30] LABS: THYROID STIMULATING HORMONE 1.86 uIU/mL (0.47-4.68)
[2018-06-29 17:08] VITALS: BP 104/60
--- NOTE | 2018-06-29 19:11 | PDOC DISCHARGE SUMMARY ---
General - Admit/Disc Date/PCP Admission Date/Primary Care Provider: 06/28/18 03:12 [facility] Discharge Date: 06/29/18 - Discharge Diagnosis (1) Chest pain Is this a current diagnosis for this admission?: Yes - Additional Information Resuscitation Status: Full Code Discharge Diet: Cardiac Discharge Activity: Activity As Tolerated Prescriptions: Pantoprazole Sodium [Protonix [address] Tablet] 40 mg PO QAM #30 tablet.dr Home Medications: Ticagrelor [Brilinta 90 mg Tablet] 90 mg PO Q12 10/09/16 Nitroglycerin [Nitrostat 0.4 mg (1/150 Gr) Tabs 25/Bottle] 1 tab SL Q5MP PRN 10/10/16 Multivit with Iron,Minerals [Compete] 1 each PO DAILY 01/26/18 Albuterol Sulfate [Albuterol Sulfate Hfa] 2 puff IH Q6HP PRN 06/28/18 Aspirin [Ecotrin 81 mg EC Tablet] 81 mg PO DAILY 06/28/18 Atorvastatin Calcium [Lipitor 80 mg Tablet] 80 mg PO QHS 06/28/18 Cholecalciferol (Vitamin D3) [Vitamin D3 1000 Unit Tablet] 1,000 unit PO DAILY 06/28/18 Cyanocobalamin (Vitamin B-12) [Vitamin B-12 1000 mcg Tablet] 1,000 mcg PO DAILY 06/28/18 Olodaterol HCl [Striverdi Respimat] 1 puff IH QID 06/28/18 Pantoprazole Sodium [Protonix [address] Tablet] 40 mg PO QAM #30 tablet. 06/29/18 History of Present Illness History of Present Illness: Admitting hospitalist's H&P: ESTRELLA RODRIGUEZ is a 62 year old male with a past medical history of COPD, tobacco dependence, hypertension, coronary artery disease with stent x1, tobacco dependence, hypertension and dyslipidemia. He presents with 4 hours of retrosternal chest pain which radiates to the left arm. Patient is somewhat unclear regarding the characterization of pain and does include burning radiating to the jaw with 3 out of 5 intensity lasting 30 minutes but alleviated by rest and GI cocktail. In the emergency room he has an unremarkable work-up no recent stress test. He is referred to the hospitalist for observation. Hospital Course Hospital Course: Patient was admitted for chest pain. His EKGs and troponins were normal. He went for stress testing which came back normal. On palpation of his chest, patient does have significant chest wall tenderness. He works as a part-time boat worker. He has been chest pain-free the whole day. He does not have any shortness of breath and has been saturating well on room air. He was advised to take Tylenol at home for his chest wall tenderness. He was also given a trial of PPI. He will closely follow-up with his PCP. Physical Exam Vital Signs: Temp Pulse Resp BP Pulse Ox 98.2 F 78 15 104/60 97 06/29/18 17:07 06/29/18 17:07 06/29/18 17:07 06/29/18 17:07 06/29/18 17:07 Intake & Output 06/28/18 06/29/18 06/30/18 06:59 06:59 06:59 Intake Total 850 240 Balance 850 240 Weight 114 lb 5 oz 115 lb 4.828 oz General appearance: PRESENT: no acute distress, well-developed, well-nourished Head exam: PRESENT: atraumatic, normocephalic Eye exam: PRESENT: conjunctiva pink, EOMI, PERRLA. ABSENT: scleral icterus Ear exam: PRESENT: normal external ear exam Mouth exam: PRESENT: moist, tongue midline Neck exam: ABSENT: carotid bruit, JVD, lymphadenopathy, thyromegaly Respiratory exam: PRESENT: clear to auscultation jessica, other - +chest wall tenderness on palpation. ABSENT: rales, rhonchi, wheezes Cardiovascular exam: PRESENT: RRR. ABSENT: diastolic murmur, rubs, systolic murmur Pulses: PRESENT: normal dorsalis pedis pul GI/Abdominal exam: PRESENT: normal bowel sounds, soft. ABSENT: distended, guarding, mass, organolmegaly, rebound, tenderness Rectal exam: PRESENT: deferred Neurological exam: PRESENT: alert, awake, oriented to person, oriented to place, oriented to time, oriented to situation, CN II-XII grossly intact. ABSENT: motor sensory deficit Results Laboratory Results: 06/27/18 20:54 06/27/18 20:54 06/29/18 15:30 TSH 1.86 Free T4 1.16 Free T3 pg/mL 3.38 06/27/18 06/27/18 06/28/18 20:54 20:54 00:45 Creatine Kinase 57 CK-MB (CK-2) 0.69 Troponin I < 0.012 Cancelled 06/28/18 06/28/18 06/28/18 01:30 07:23 15:31 Creatine Kinase CK-MB (CK-2) Troponin I < 0.012 < 0.012 < 0.012 06/28/18 19:27 Creatine Kinase CK-MB (CK-2) Troponin I < 0.012 Impressions: Chest X-Ray 06/27/18 20:21 IMPRESSION: No acute disease. Focal nodular opacities projecting about both mid to lower lung zones most likely represent nipple shadows. Consider confirmation with repeat upright PA chest radiograph with nipple markers. copyright 2010 [employer]- All Rights Reserved Qualifiers - * PATIENT BEING DISCHARGED WITH ANY OF THE FOLLOWING DIAGNOSIS: No Acute Heart Failure Is this a Heart Failure Patient?: No
--- NOTE | 2018-06-29 19:22 | DRAGON STRESS TEST REPORT ---
Intravenous Lexiscan Cardiolite stress test using single photon emmision computerized tomography. Date of procedure: 06/29/2018. Ordering Provider: Dr. Deion Berman.Patient's status: Inpatient. Indication: Chest pain. Coronary risk factors: Resting EKG: Sinus Rhythm. Poor R in leads V1 to V4. Stress EKG: No changes of ischemia. The patient had transient chest pressure with injection of Lexiscan. This was resolved with the patient drinking Pepsi. There is no shortness of breath or arrhythmias seen. Reason for termination: Protocol. Conclusions: Normal EKG and hemodynamic response to IV Lexiscan. Nuclear data: At rest the patient was given 10.07 millicuries of technetium 99m sestamibi injected intravenously. As per protocol rest non gated SPECT images were obtained. Subsequently the patient was given intravenous Lexiscan at a dose of 0.4 mg in 5 mL intravenously, followed by flush with normal saline. Subsequently the stress dose of 31.5 millicuries of technetium 99m sestamibi was injected intravenously. As per protocol stress gated images were obtained. Nuclear interpretation: Review of images showed that all segments of the myocardium had normal perfusion at rest, and normal perfusion post stress with IV Lexiscan. All segments of the myocardium had normal motion, contraction, and thickening by gated study. T. I D. ratio was normal at 1.04. There is no transient ischemic dilatation of the left ventricle. Computer read rest, and stress left ventricular ejection fraction were 50 %, and 53 %, respectively. Visually both the stress and rest ejection fractions were normal, and greater than 55%. Conclusion: 1. There is no scintigraphic evidence of Lexiscan induced myocardial ischemia. 2. There is no scintigraphic evidence of myocardial infarction/scar. Recommendations: Aggressive risk factor modification, and treating the underlying co- morbidities. MTDD
== END 2018-06-29 17:40 | disposition home or self-care (01) ==
LOC: ER 20:16 → EH 06-28 03:12 → 4W 06-28 08:20 → 4N 06-28 12:44
PROVIDERS: ADMIT Internal Medicine; ATTEND Internal Medicine
DX: R07.2 Precordial pain (principal); I25.10 Atherosclerotic heart disease of native coronary artery without angina pectoris; F17.210 Nicotine dependence, cigarettes, uncomplicated; J44.9 Chronic obstructive pulmonary disease, unspecified; E78.5 Hyperlipidemia, unspecified; R06.02 Shortness of breath; R51 Headache; I25.2 Old myocardial infarction; Z79.899 Other long term (current) drug therapy; Z79.82 Long term (current) use of aspirin; Z95.5 Presence of coronary angioplasty implant and graft
CPT/HCPCS: 93005 ×2; 99285; 96374; 96375; 36415 ×3; 84439; 82553; 82550; 84443; 85025; 80053; 84484 ×2; 84481; 93017; 71045; 78452; 93010 ×2; A9500; J2785; J3490 ×5; J2270; J2405; Q9969; G0378

== ENCOUNTER 2018-07-27 09:34 | Emergency (ER) | payer OTHER, MEDICARE, MEDICAID ==
[2018-07-27] MEDS ORDERED: METHYLPREDNISOLONE INJ 125 MG/2 ML SDV ONE (09:46)
[2018-07-27] MEDS ORDERED: EPINEPHRINE INJ/PF 1 MG/1 ML AMPULE ONE (09:46)
[2018-07-27] MEDS ORDERED: DIPHENHYDRAMINE HCL 50 MG/ML VIAL ONE (09:46)
[2018-07-27] MEDS ORDERED: FAMOTIDINE INJ/PF 20 MG/2 ML SDV IV ONE ×2 (09:47→09:49)
--- NOTE | 2018-07-27 09:47 | ER Document Report ---
ED Medical Screen (RME) - General Chief Complaint: Allergic Reaction Stated Complaint: POSSIBLE ALLERGIC REACTION Time Seen by Provider: 07/27/18 09:43 Primary Care Provider: [facility] [Primary Care Provider] - Follow up as needed Mode of Arrival: Wheelchair Information source: Patient Notes: Patient presents emergency department with allergic reaction. Reports he got stung by a bee wasp earlier this morning. Reports he is already given himself 1 epi injection. Reports he has been intubated in the past due to this. Patient reports he feels like his airway is closing off nasally. I have greeted and performed a rapid initial assessment of this patient. A comprehensive ED assessment and evaluation of the patient, analysis of test results and completion of the medical decision making process will be conducted by additional ED providers. Dictation of this chart was performed using voice recognition software; therefore, there may be some unintended grammatical errors. TRAVEL OUTSIDE OF THE [place] IN LAST 30 DAYS: No - Related Data Allergies/Adverse Reactions: bee pollen [Bee Pollen] Allergy (Mild, Verified 07/27/18 09:36) levofloxacin [From Levaquin] Allergy (Verified 07/27/18 09:36) propoxyphene napsylate [From Darvocet-N 100] Adverse Reaction (Intermediate, Verified 07/27/18 09:36) GI upset Past Medical History - Past Medical History Cardiac Medical History: Reports: Hx Heart Attack - Stent placement /[place] 2 years ago, Hx Hypercholesterolemia Denies: Hx Coronary Artery Disease, Hx Hypertension Pulmonary Medical History: Reports: Hx COPD Denies: Hx Asthma, Hx Bronchitis, Hx Pneumonia Neurological Medical History: Reports: Hx Migraine. Denies: Hx Cerebrovascular Accident, Hx Seizures Renal/ Medical History: Reports: Hx Kidney Stones. Denies: Hx Peritoneal Dialysis Musculoskeltal Medical History: Denies Hx Arthritis Past Surgical History: Reports: Hx Coronary Stent, Hx Orthopedic Surgery - Left rotator cuff, August 27 2015 - Immunizations Hx Diphtheria, Pertussis, Tetanus Vaccination: Yes History of Influenza Vaccine for 11/2016 - 04/2017 Season: No Physical Exam - Vital signs Vitals: Temp Pulse Resp BP Pulse Ox 98.8 F 76 16 116/65 97 07/27/18 09:40 07/27/18 09:40 07/27/18 09:40 07/27/18 09:40 07/27/18 09:40 Course - Vital Signs Vital signs: Temp Pulse Resp BP Pulse Ox 98.8 F 76 16 116/65 97 07/27/18 09:40 07/27/18 09:40 07/27/18 09:40 07/27/18 09:40 07/27/18 09:40 Doctor's Discharge - Discharge Referrals: [facility] [Primary Care Provider] - Follow up as needed
[2018-07-27] MEDS ORDERED: DIPHENHYDRAMINE HCL 50 MG/ML VIAL IV ONE (09:49)
[2018-07-27] MEDS ORDERED: METHYLPREDNISOLONE INJ 125 MG/2 ML SDV IV ONE (09:50)
[2018-07-27] MEDS ORDERED: EPINEPHRINE INJ/PF 1 MG/1 ML AMPULE IM ONE (10:00)
--- NOTE | 2018-07-27 10:09 | ER Document Report ---
ED General - General Chief Complaint: Allergic Reaction Stated Complaint: POSSIBLE ALLERGIC REACTION Time Seen by Provider: 07/27/18 09:43 Primary Care Provider: [facility] [Primary Care Provider] - Follow up as needed Mode of Arrival: Wheelchair Notes: Patient presents with acute throat tightness shortness of breath after being stung by a bee about 1 hour ago. Gave himself an EpiPen. History of anaphylaxis. No history of trach. Feels slightly better after the EpiPen. Mild wheezing and shortness of breath. Patient seen by nurse practitioner as I walked in the room who already ordered a dose of epinephrine. This would be a second dose. TRAVEL OUTSIDE OF THE [place] IN LAST 30 DAYS: No - Related Data Allergies/Adverse Reactions: bee pollen [Bee Pollen] Allergy (Mild, Verified 07/27/18 09:36) levofloxacin [From Levaquin] Allergy (Verified 07/27/18 09:36) propoxyphene napsylate [From Darvocet-N 100] Adverse Reaction (Intermediate, Verified 07/27/18 09:36) GI upset Past Medical History - General Information source: Patient - Social History Smoking Status: Unknown if Ever Smoked Family History: COPD - Past Medical History Cardiac Medical History: Reports: Hx Heart Attack - Stent placement /[place] 2 years ago, Hx Hypercholesterolemia Denies: Hx Coronary Artery Disease, Hx Hypertension Pulmonary Medical History: Reports: Hx COPD Denies: Hx Asthma, Hx Bronchitis, Hx Pneumonia Neurological Medical History: Reports: Hx Migraine. Denies: Hx Cerebrovascular Accident, Hx Seizures Renal/ Medical History: Reports: Hx Kidney Stones. Denies: Hx Peritoneal Dialysis Musculoskeletal Medical History: Denies Hx Arthritis Past Surgical History: Reports: Hx Coronary Stent, Hx Orthopedic Surgery - Left rotator cuff, August 27 2015 - Immunizations Hx Diphtheria, Pertussis, Tetanus Vaccination: Yes Review of Systems - Review of Systems Notes: REVIEW OF SYSTEMS Obtained: Acuity PHYSICAL EXAMINATION General: Appears in mild distress Head: Atraumatic, normocephalic ENT: Mouth normal, oropharynx moist, no exudates or tonsillar enlargement. Normal voice no stridor. Eyes: Conjunctiva normal, pupils equal, lids normal Neck: No JVD, supple, no guarding CVS: Normal rate, regular rhythm, no murmurs Resp: No resp distress, equal and normal breath sounds bilaterally GI: Nondistended, soft, no tenderness to palpation, no rebound or guarding Ext: No deformities, no edema, normal range of motion in upper and lower ext Back: No CVA or midline TTP Skin: No rash, warm Lymphatic: No lymphadeopathy noted Neuro: Awake, alert. Face symmetric. GCS 15. Physical Exam - Vital signs Vitals: Temp Pulse Resp BP Pulse Ox 98.8 F 76 16 116/65 97 07/27/18 09:40 07/27/18 09:40 07/27/18 09:40 07/27/18 09:40 07/27/18 09:40 Course - Re-evaluation Re-evalutation: 07/27/18 10:09 Acute anaphylaxis without shock. Already received epi, received second dose on ED arrival. Will observe for 4 hours. Will add Solu-Medrol Benadryl Pepcid. No evidence of respiratory failure or impending airway demise at this time. 07/27/18 12:13 Reassessed at 12:10 PMsleeping comfortable normal vital signs no stridor no wheezing. 1 more hour abs then discharged with prednisone Benadryl Pepcid and refill of EpiPen. I have discussed with the patient there likely diagnosis, aftercare plan, follow-up plans and my usual and customary return precautions. They verbalized understanding of this. - Vital Signs Vital signs: Temp Pulse Resp BP Pulse Ox 98.8 F 76 17 151/69 H 97 07/27/18 09:40 07/27/18 09:40 07/27/18 10:31 07/27/18 10:31 07/27/18 10:31 Critical Care Note - Critical Care Note Total time excluding time spent on procedures (mins): 34 Comments: The above patient is critically ill. Not including procedures, but including direct re-evaluations, speaking with patient and/or consultants, interpreting re sults, and documenting, I spent the total amount of minute listed listed above on critical care time Discharge - Discharge Clinical Impression: Anaphylactic reaction Qualifiers: Encounter type: initial encounter Qualified Code(s): T78.2XXA - Anaphylactic shock, unspecified, initial encounter Condition: Good Disposition: HOME, SELF-CARE Instructions: Anaphylaxis Kit ([facility]) Prescriptions: Diphenhydramine HCl [Benadryl 25 mg Capsule] 25 mg PO Q4 #20 capsule Epinephrine [Epipen] 0.3 mg IM ONCE PRN #2 auto.injct PRN Reason: Famotidine [Pepcid 20 mg Tablet] 20 mg PO DAILY #12 tablet Prednisone [Deltasone 20 mg Tablet] 60 mg PO DAILY #15 tablet [facility]errals: [facility] [Primary Care Provider] - Follow up as needed
[2018-07-27 13:07] VITALS: BP 100/88
== END 2018-07-27 13:07 | disposition home or self-care (01) ==
LOC: ER 09:34
DX: T63.441A Toxic effect of venom of bees, accidental (unintentional), initial encounter (principal); T78.2XXA Anaphylactic shock, unspecified, initial encounter; J44.9 Chronic obstructive pulmonary disease, unspecified; R06.02 Shortness of breath; I25.2 Old myocardial infarction; Z95.5 Presence of coronary angioplasty implant and graft; Z88.1 Allergy status to other antibiotic agents
CPT/HCPCS: 99291; 96372; 96374; 96375; J1200; J0171; J2930; S0028

== ENCOUNTER 2019-12-04 20:33 | Emergency (ER) | payer OTHER, MEDICARE, MEDICAID ==
[2019-12-04] MEDS ORDERED: FAMOTIDINE INJ/PF 20 MG/2 ML SDV IV ONE (20:50)
[2019-12-04] MEDS ORDERED: METHYLPREDNISOLONE INJ 125 MG/2 ML SDV IV ONE (20:50)
[2019-12-04] MEDS ORDERED: DIPHENHYDRAMINE HCL 50 MG/ML VIAL IV ONE (20:50)
--- NOTE | 2019-12-04 20:56 | ER Document Report ---
ED Medical Screen (RME) - General Chief Complaint: Allergic Reaction Stated Complaint: POSSIBLE ALLERGIC REACTION Primary Care Provider: [facility] [[facility]] - Follow up as needed TRAVEL OUTSIDE OF THE [place] IN LAST 30 DAYS: No - HPI Notes: 12/04/19 20:54 64-year-old male presents to the emergency room today via EMS after he stepped on a bee with his right foot at 1930. Patient states he has anaphylactic reaction to bee stings. He did administer a self EpiPen and he did receive another dose of epi in the EMS. Patient states he is having some difficulty breathing and some tight noticed to his chest, states he has these symptoms every time he has an anaphylactic reaction. Patient has not received any Solu- Medrol Pepcid or Benadryl, will add that to his medication regimen. Denies any difficulty speaking, tongue swelling, angioedema. Denies any fevers or chills. 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 Denies any nausea vomiting abdominal pain, lightheadedness dizziness blurred vision double vision or loss of vision I have greeted and performed a rapid initial assessment of this patient. A comprehensive ED assessment and evaluation of the patient, analysis of test results and completion of the medical decision making process will be conducted by additional ED providers. PHYSICAL EXAMINATION: GENERAL: Well-appearing, well-nourished and in no acute distress. HEAD: Atraumatic, normocephalic. EYES: Pupils equal round extraocular movements intact, conjunctiva are normal. ENT: Uvula midline, tongue midline, no tongue edema. Speech is clear. No trismus, drooling, stridor NECK: Normal range of motion CV: s1, s2 regular LUNGS: No respiratory distress Musculoskeletal: Normal range of motion NEUROLOGICAL: Normal speech, normal gait. SKIN: Warm, Dry, normal turgor, no rashes or lesions noted. - Related Data Allergies/Adverse Reactions: bee pollen [Bee Pollen] Allergy (Mild, Verified 07/27/18 09:36) levofloxacin [From Levaquin] Allergy (Verified 07/27/18 09:36) propoxyphene napsylate [From Darvocet-N 100] Adverse Reaction (Intermediate, Verified 07/27/18 09:36) GI upset Past Medical History - Past Medical History Cardiac Medical History: Reports: Hx Heart Attack - Stent placement /[place] 2 years ago, Hx Hypercholesterolemia Denies: Hx Coronary Artery Disease, Hx Hypertension Pulmonary Medical History: Reports: Hx COPD Denies: Hx Asthma, Hx Bronchitis, Hx Pneumonia Neurological Medical History: Reports: Hx Migraine. Denies: Hx Cerebrovascular Accident, Hx Seizures Renal/ Medical History: Reports: Hx Kidney Stones. Denies: Hx Peritoneal Dialysis Musculoskeltal Medical History: Denies Hx Arthritis Past Surgical History: Reports: Hx Coronary Stent, Hx Orthopedic Surgery - Left rotator cuff, August 27 2015 - Immunizations Hx Diphtheria, Pertussis, Tetanus Vaccination: Yes Doctor's Discharge - Discharge Referrals: [facility] [Primary Care [facility]] - Follow up as needed
[2019-12-04 21:03] LABS: ABSOLUTE BASOPHILS # (AUTO) 0.1 10^3/uL (0.0-0.2); ABSOLUTE EOSINOPHILS # (AUTO) 0.1 10^3/uL (0.0-0.6); ABSOLUTE LYMPHOCYTES (AUTO) 5.2 10^3/uL (0.5-4.7); ABSOLUTE MONOCYTES (AUTO) 1.7 10^3/uL (0.1-1.4); ABSOLUTE NEUT (AUTO) 8.6 10^3/uL (1.7-8.2); BASOPHILS % (AUTO) 0.6 % (0-2); EOSINOPHILS % (AUTO) 0.9 % (0-6); HEMATOCRIT 42.4 % (37.9-51.0); HEMOGLOBIN 14.8 g/dL (13.5-17.0); MEAN CORPUSCULAR HEMOGLOBIN 37.1 pg (27.0-33.4); MEAN CORPUSCULAR HGB CONC 34.9 g/dL (32.0-36.0); MEAN CORPUSCULAR VOLUME 106 fl (80-97); MONOCYTES % (AUTO) 10.6 % (3-13); PLATELET COUNT 270 10^3/uL (150-450); RED CELL DISTRIBUTION WIDTH 13.2 % (11.5-14.0); SEGMENTED NEUTROPHILS % (AUTO) 54.9 % (42-78); TOTAL CELLS COUNTED % (AUTO) 100 %; WHITE BLOOD COUNT 15.7 10^3/uL (4.0-10.5)
[2019-12-04 21:13] LABS: ALBUMIN 4.2 g/dL (3.5-5.0); ALKALINE PHOSPHATASE 55 U/L (38-126); ANION GAP 11 (5-19); ASPARTATE AMINO TRANSFERASE 25 U/L (17-59); BILIRUBIN,DIRECT 0.1 mg/dL (0.0-0.4); BILIRUBIN,TOTAL 0.5 mg/dL (0.2-1.3); BLOOD UREA NITROGEN 24 mg/dL (7-20); CALCIUM 9.8 mg/dL (8.4-10.2); CARBON DIOXIDE 24 mmol/L (22-30); CHLORIDE 103 mmol/L (98-107); GLUCOSE 121 mg/dL (75-110); POTASSIUM 3.9 mmol/L (3.6-5.0); TOTAL PROTEIN 6.9 g/dL (6.3-8.2)
--- NOTE | 2019-12-04 21:33 | ER Document Report ---
ED General - General Chief Complaint: Allergic Reaction Stated Complaint: POSSIBLE ALLERGIC REACTION Primary Care Provider: ALONDRA RAMIREZ MD [ACTIVE STAFF] - Follow up as needed ANNEMARIE RANGEL MD [ACTIVE STAFF] - Follow up in 1 week [facility] [Primary Care [facility]] - Follow up in 1 week Notes: 64-year-old male prior [place] several years ago, hyperlipidemia, known bee sting, anaphylaxis presents with shortness of breath chest pain lightheadedness f ollowing bee sting. Patient was stung approximately 8 PM on his right great toe, immediately after felt onset of shortness of breath, diffuse chest pressure and tightness, and lightheadedness which resolved a few minutes after giving himself EpiPen. EMS activated and given additional dose of epi, 50 of Benadryl. Patient currently asymptomatic. Patient denies any current chest pain, chest pain when he walks up a flight of stairs, lower extremity edema, cough, fever, recent illness, syncope, trauma TRAVEL OUTSIDE OF THE [place] IN LAST 30 DAYS: No - Related Data Allergies/Adverse Reactions: bee pollen [Bee Pollen] Allergy (Mild, Verified 07/27/18 09:36) levofloxacin [From Levaquin] Allergy (Verified 07/27/18 09:36) propoxyphene napsylate [From Darvocet-N 100] Adverse Reaction (Intermediate, Verified 07/27/18 09:36) GI upset Past Medical History - General Information source: Patient, Relative - Social History Smoking Status: Unknown if Ever Smoked Family History: COPD - Past Medical History Cardiac Medical History: Reports: Hx Heart Attack - Stent placement /[place] 2 years ago, Hx Hypercholesterolemia Denies: Hx Coronary Artery Disease, Hx Hypertension Pulmonary Medical History: Reports: Hx COPD Denies: Hx Asthma, Hx Bronchitis, Hx Pneumonia Neurological Medical History: Reports: Hx Migraine. Denies: Hx Cerebrovascular Accident, Hx Seizures Renal/ Medical History: Reports: Hx Kidney Stones. Denies: Hx Peritoneal Dialysis Musculoskeletal Medical History: Denies Hx Arthritis Past Surgical History: Reports: Hx Coronary Stent, Hx Orthopedic Surgery - Left rotator cuff, August 27 2015 - Immunizations Hx Diphtheria, Pertussis, Tetanus Vaccination: Yes Review of Systems - Review of Systems Notes: REVIEW OF SYSTEMS: CONSTITUTIONAL : Denies fever, chills, or sweats. EENT: Denies recent cold/sinus symptoms, denies throat pain CARDIOVASCULAR: + chest pain, -WENDY RESPIRATORY: Denies cough, denies shortness of breath. GASTROINTESTINAL: Denies abdominal pain, nausea/vomiting. GENITOURINARY: Denies difficulty urinating, painful urination. MUSCULOSKELETAL: Denies neck pain, back pain. SKIN: Denies rash or skin lesions. HEMATOLOGIC : Denies easy bruising or bleeding. LYMPHATIC: Denies swollen, enlarged glands. NEUROLOGICAL: Denies headache, denies change in gait. PSYCHIATRIC: Denies anxiety or stress or depression. Physical Exam - Vital signs Vitals: Temp 98.4 F 12/04/19 20:34 - Notes Notes: PHYSICAL EXAMINATION: GENERAL: Well-appearing, well-nourished talkative pleasant middle-aged male sitting up in stretcher with no visible signs of discomfort and in no acute distress. HEAD: Atraumatic, normocephalic. EYES: Pupils equal round and appropriate constriction, sclera anicteric, conjunctiva are normal. ENT: nares patent, moist mucous membranes, no oral pharyngeal edema, normal voice, managing secretions NECK: Normal range of motion, supple without lymphadenopathy LUNGS: Breath sounds clear to auscultation bilaterally and equal. No wheezes r ales or rhonchi. No stridor. Normal respiratory rate and effort, speaking in full sentences. HEART: Regular rate and rhythm without murmurs ABDOMEN: Soft, nontender, no guarding, no masses, no CVAT EXTREMITIES: Normal range of motion, no pitting or edema. No cyanosis. NEUROLOGICAL: Awake, alert, conversing appropriately, moves all extremities spontaneously. PSYCH: Normal mood, normal affect. SKIN: Warm, Dry, normal turgor, mild erythema to distal right great toe without any significant edema, normal capillary refill, no stinger visible, skin intact Course - Re-evaluation Re-evalutation: 12/04/19 21:35 Patient presents with symptoms likely secondary to anaphylaxis immediately after bee sting which is known anaphylaxis trigger for patient. Given patient's cardiac history and possibility of stressors such as anaphylactic reaction triggering ACS will obtain 0 and 4-hour troponins while observing patient for continued response to anaphylaxis drugs. However, low pretest probability for ACS and will likely discharge. Presentation not consistent with PE. Patient currently asymptomatic, vital signs normal, will continue to monitor closely. 12/05/19 02:07 Patient remains asymptomatic in ED, repeat troponins negative, repeat EKG without any changes or signs of ischemia. Patient ready for discharge with anaphylaxis meds. Patient has outpatient follow-up with PCP and recommended post form remover. Gave patient extensive return to ED precautions which she demonstrated understanding of. - Vital Signs Vital signs: Temp Pulse Resp BP Pulse Ox 98.5 F 16 110/59 L 97 12/05/19 02:43 12/05/19 02:43 12/05/19 02:43 12/05/19 02:43 - Laboratory Result Diagrams: 12/04/19 20:40 12/04/19 20:40 Laboratory results interpreted by me: 12/04/19 12/04/19 20:40 20:40 WBC 15.7 H RBC 4.00 L MCV 106 H MCH 37.1 H Absolute Neuts (auto) 8.6 H Absolute Lymphs (auto) 5.2 H Absolute Monos (auto) 1.7 H BUN 24 H Glucose 121 H - EKG Interpretation by Me Additional EKG results interpreted by me: 12/05/19 03:08 Rate 72, sinus versus ectopic atrial rhythm, regular rhythm, no significant ST elevations or depressions, no significant T wave abnormalities Repeat EKG:sinus versus ectopic atrial rhythm, regular rhythm, no significant ST elevations or depressions, no significant T wave abnormalities, no significant change from prior EKG Discharge - Discharge Clinical Impression: Anaphylaxis Qualifiers: Encounter type: initial encounter Qualified Code(s): T78.2XXA - Anaphylactic shock, unspecified, initial encounter Disposition: HOME, SELF-CARE Additional Instructions: IF YOU DEVELOP DIFFICULTY BREATHING, RETURN OF HIVES, VOMITING, LIGHTHEADEDNESS, GIVE YOURSELF THE EPINEPHRINE SHOT IMMEDIATELY AND CALL 911. NEVER HESITATE TO GIVE YOURSELF THE EPINEPHRINE THIS CAN SAVE YOUR LIFE IF YOU ARE HAVE A SERIOUS ALLERGIC REACTION. You were treated in the emergency department today for a severe allergic reaction called anaphylaxis. Anaphylaxis is an allergic reaction that can threaten your life. If you have any return of symptoms such as dizziness or fainting, difficulty breathing, or swelling in your mouth or throat, you should use EpiPen immediately and call 911. Use a second EpiPen if you have return of symptoms or if you do not feel improved after 10 minutes if EMS has not arrived. Carry 2 epipens on you at all times. Do not allow someone else to carry your EpiPen for you or keep it anywhere else other than on your person. follow-up closely with an post form remover to determine what you are allergic to. You may have allergies to foods and other things that you have been exposed to before without any problems because allergies tar heat exchanger cleaner one's lifetime. It is extremely important that you find out what you are allergic to so that you can avoid these triggers in the future. Follow-up with an post form remover and your primary doctor within 1 week. Take all medications as prescribed. If you have any shortness of breath, dizziness, fainting, mouth or throat swelling, confusion, or any other worsening or alarming symptoms use EpiPen and return to the emergency department immediately. Prescriptions: Epinephrine [Epipen 2-Raghav] 0.3 mg IM Q15MP PRN #1 packet PRN Reason: Diphenhydramine HCl [Benadryl] 25 mg PO Q6H 4 Days #16 capsule Prednisone [Deltasone 20 mg Tablet] 2 tab PO DAILY 4 Days #8 tablet Famotidine [Pepcid 20 mg Tablet] 20 mg PO BID 4 Days #8 tablet Referrals: ALONDRA RAMIREZ MD [ACTIVE STAFF] - Follow up as needed [facility] [Primary [facility]] - Follow up in 1 week ANNEMARIE RANGEL MD [ACTIVE STAFF] - Follow up in 1 week
[2019-12-05 02:54] VITALS: BP 110/59
--- NOTE | 2019-12-05 07:34 | EKG REPORT ---
SEVERITY:- BORDERLINE ECG - SINUS RHYTHM PROBABLE LEFT ATRIAL ABNORMALITY : Confirmed by: David Milton MD 05-Dec-2019 07:34:10
--- NOTE | 2019-12-05 07:36 | EKG REPORT ---
SEVERITY:- ABNORMAL ECG - SINUS OR ECTOPIC ATRIAL RHYTHM SHORT [place] INTERVAL, ACCELERATED AV CONDUCTION BORDERLINE LEFT AXIS DEVIATION NONSPECIFIC ANTEROSEPTAL ST-T CHANGES : Confirmed by: David Milton MD 05-Dec-2019 07:35:30
== END 2019-12-05 02:48 | disposition home or self-care (01) ==
LOC: ER 20:33
DX: T78.2XXA Anaphylactic shock, unspecified, initial encounter (principal); T63.441A Toxic effect of venom of bees, accidental (unintentional), initial encounter; R06.02 Shortness of breath; R07.9 Chest pain, unspecified; R42 Dizziness and giddiness; E78.5 Hyperlipidemia, unspecified; Z88.8 Allergy status to other drugs, medicaments and biological substances; J44.9 Chronic obstructive pulmonary disease, unspecified; E78.00 Pure hypercholesterolemia, unspecified; X58.XXXA Exposure to other specified factors, initial encounter
CPT/HCPCS: 93005; 99284; 96374; 96375; 36415; 85025; 80053; 84484; 93010; J2930; S0028

== ENCOUNTER 2020-01-31 14:47 | Emergency (ER) | payer OTHER, MEDICARE, MEDICAID ==
--- NOTE | 2020-01-31 15:48 | ER Document Report ---
ED Medical Screen (RME) - General Chief Complaint: Cough Stated Complaint: COUGH Time Seen by Provider: 01/31/20 15:45 Primary Care Provider: [facility] [Primary [facility]] - Follow up as needed Mode of Arrival: Wheelchair Information source: Patient Notes: 64-year-old male presented to ED for complaint of cough not able to lay down to sleep short of breath not eating. He states he has lost 12 pounds in about 2 weeks due to the not able to eat. He states he does have COPD and stopped smoking about 4 weeks ago. He does have a history of COPD coronary artery disease with heart cath and stents has a history of high blood pressure cholesterol and he thinks may be a [place]. He states he has had multiple fractures as a child. He is a former smoker does not drink and does use marijuana. He is alert and oriented and speaking in full sentences at this time. I do not have an ambulance paper on his chart but he states that he came in EMS and that they swabbed his nose he states he does not know what the result was. I have greeted and performed a rapid initial assessment of this patient. A comprehensive ED assessment and evaluation of the patient, analysis of test results and completion of medical decision making process will be conducted by an additional ED providers. TRAVEL OUTSIDE OF THE [place] IN LAST 30 DAYS: No - Related Data Allergies/Adverse Reactions: bee pollen [Bee Pollen] Allergy (Mild, Verified 07/27/18 09:36) levofloxacin [From Levaquin] Allergy (Verified 07/27/18 09:36) propoxyphene napsylate [From Darvocet-N 100] Adverse Reaction (Intermediate, Verified 07/27/18 09:36) GI upset Past Medical History - Past Medical History Cardiac Medical History: Reports: Hx Heart Attack - Stent placement /[place] 2 years ago, Hx Hypercholesterolemia Denies: Hx Coronary Artery Disease, Hx Hypertension Pulmonary Medical History: Reports: Hx COPD Denies: Hx Asthma, Hx Bronchitis, Hx Pneumonia Neurological Medical History: Reports: Hx Migraine. Denies: Hx Cerebrovascular Accident, Hx Seizures Renal/ Medical History: Reports: Hx Kidney Stones. Denies: Hx Peritoneal Dialysis Musculoskeltal Medical History: Denies Hx Arthritis Past Surgical History: Reports: Hx Cardiac Surgery - stents placed, Hx Coronary Stent, Hx Orthopedic Surgery - Left rotator cuff, August 27 2015 - Immunizations Hx Diphtheria, Pertussis, Tetanus Vaccination: Yes Physical Exam - Vital signs Vitals: Temp Pulse Resp BP Pulse Ox 98.0 F 73 20 121/76 97 01/31/20 14:50 01/31/20 14:50 01/31/20 14:50 01/31/20 14:50 01/31/20 14:50 Course - Vital Signs Vital signs: Temp Pulse Resp BP Pulse Ox 98.0 F 73 20 121/76 97 01/31/20 14:50 01/31/20 14:50 01/31/20 14:50 01/31/20 14:50 01/31/20 14:50 Doctor's Discharge - Discharge Referrals: [facility] [[facility]] - Follow up as needed
--- NOTE | 2020-01-31 16:47 | RADIOLOGY REPORT (SQ) ---
EXAM DESCRIPTION: CHEST SINGLE VIEW IMAGES COMPLETED DATE/TIME: 01/31/2020 4:34 pm REASON FOR STUDY: Short of breath cough chest pains COMPARISON: 06/27/2018 EXAM PARAMETERS: NUMBER OF VIEWS: One view. TECHNIQUE: Single frontal radiographic view of the chest acquired. RADIATION DOSE: NA LIMITATIONS: None. FINDINGS: LUNGS AND PLEURA: No opacities, masses or pneumothorax. No pleural effusion. MEDIASTINUM AND HILAR STRUCTURES: No masses. Contour normal. HEART AND VASCULAR STRUCTURES: Heart normal in size. Normal vasculature. BONES: No acute findings. HARDWARE: None in the chest. OTHER: No other significant finding. IMPRESSION: NO ACUTE RADIOGRAPHIC FINDING IN THE CHEST. TECHNICAL DOCUMENTATION: JOB ID: [id number] 2010 [employer]- All Rights Reserved Reading location - IP/workstation name: [email or web address]
[2020-01-31 18:46] LABS: ABSOLUTE LYMPHOCYTES (AUTO) 0.7 10^3/uL (0.5-4.7); ABSOLUTE MONOCYTES (AUTO) 0.1 10^3/uL (0.1-1.4); BASOPHILS % (AUTO) 0.4 % (0-2); EOSINOPHILS % (AUTO) 0.1 % (0-6); HEMATOCRIT 42.7 % (37.9-51.0); HEMOGLOBIN 14.9 g/dL (13.5-17.0); LYMPHOCYTES % (AUTO) 6.4 % (13-45); MEAN CORPUSCULAR HEMOGLOBIN 35.5 pg (27.0-33.4); MEAN CORPUSCULAR HGB CONC 34.8 g/dL (32.0-36.0); MEAN CORPUSCULAR VOLUME 102 fl (80-97); MONOCYTES % (AUTO) 1.1 % (3-13); PLATELET COUNT 363 10^3/uL (150-450); RED BLOOD COUNT 4.18 10^6/uL (4.35-5.55); TOTAL CELLS COUNTED % (AUTO) 100 %; WHITE BLOOD COUNT 10.8 10^3/uL (4.0-10.5)
--- NOTE | 2020-01-31 19:02 | EKG REPORT ---
SEVERITY:- BORDERLINE ECG - ECTOPIC ATRIAL RHYTHM SHORT IN INTERVAL, ACCELERATED AV CONDUCTION : Confirmed by: David Milton MD 31-Jan-2020 19:01:10
[2020-01-31 19:07] LABS: ALBUMIN 4.2 g/dL (3.5-5.0); ALKALINE PHOSPHATASE 119 U/L (38-126); ANION GAP 11 (5-19); ASPARTATE AMINO TRANSFERASE 24 U/L (17-59); BILIRUBIN,DIRECT 0.2 mg/dL (0.0-0.4); BILIRUBIN,TOTAL 0.7 mg/dL (0.2-1.3); BLOOD UREA NITROGEN 15 mg/dL (7-20); CALCIUM 9.6 mg/dL (8.4-10.2); CARBON DIOXIDE 25 mmol/L (22-30); CHLORIDE 106 mmol/L (98-107); GLUCOSE 132 mg/dL (75-110); POTASSIUM 3.5 mmol/L (3.6-5.0); TOTAL PROTEIN 7.5 g/dL (6.3-8.2)
[2020-01-31 20:30] LABS: A TYPE INFLUENZA AG NEGATIVE (NEGATIVE); B INFLUENZA AG NEGATIVE (NEGATIVE)
[2020-01-31] MEDS ORDERED: BENZONATATE 100 MG CAPSULE PO ONE (22:14)
--- NOTE | 2020-01-31 22:17 | ER Document Report ---
ED General - General Chief Complaint: Chest Pain > 30 Stated Complaint: COUGH Time Seen by Provider: 01/31/20 15:45 Primary Care Provider: [facility] [Primary Care Provider] - Follow up as needed Mode of Arrival: Wheelchair TRAVEL OUTSIDE OF THE [place] IN LAST 30 DAYS: No - HPI Notes: Patient presents complaint of coughing when he lies flat to the point where it is been keeping him up at night. He feels this is been going on for several weeks. He finally came in because his made him. He denies any fever or chills. He says he has lost some weight. He has seen a separations scientist in the past but not for this problem. He says that this seemed to come on after he had a upper respiratory infection. Over the past 4 weeks he now coughs almost unc ontrollably if he lies flat. He does not feel short of breath. He sleeps with one thick and one thin pillow but says he has done that for decades. He denies any edema or PND. He denies any chest pain. He denies any hemoptysis. He denies any night sweats. He is otherwise in his usual state of health. - Related Data Allergies/Adverse Reactions: bee pollen [Bee Pollen] Allergy (Mild, Verified 07/27/18 09:36) levofloxacin [From Levaquin] Allergy (Verified 07/27/18 09:36) propoxyphene napsylate [From Darvocet-N 100] Adverse Reaction (Intermediate, Verified 07/27/18 09:36) GI upset Past Medical History - General Information source: Patient - Social History Smoking Status: Former Smoker Family History: COPD - Medical History Medical History: Other Notes: Past medical history as documented in the electronic health record is reviewed. - Past Medical History Cardiac Medical History: Reports: Hx Heart Attack - Stent placement /[place] 2 years ago, Hx Hypercholesterolemia Denies: Hx Coronary Artery Disease, Hx Hypertension Pulmonary Medical History: Reports: Hx COPD Denies: Hx Asthma, Hx Bronchitis, Hx Pneumonia Neurological Medical History: Reports: Hx Migraine. Denies: Hx Cerebrovascular Accident, Hx Seizures Renal/ Medical History: Reports: Hx Kidney Stones. Denies: Hx Peritoneal Dialysis Musculoskeletal Medical History: Denies Hx Arthritis Past Surgical History: Reports: Hx Cardiac Surgery - stents placed, Hx Coronary Stent, Hx Orthopedic Surgery - Left rotator cuff, August 27 2015 - Immunizations Hx Diphtheria, Pertussis, Tetanus Vaccination: Yes Review of Systems - Review of Systems Notes: All other systems are negative or noncontributory except as noted in history of present illness. Physical Exam - Vital signs Vitals: Temp Pulse Resp BP Pulse Ox 98.0 F 73 20 121/76 97 01/31/20 14:50 01/31/20 14:50 01/31/20 14:50 01/31/20 14:50 01/31/20 14:50 - Notes Notes: General: Well-developed slender somewhat anxious male no acute distress. Vital signs and nursing documentation are reviewed. HEENT normal to inspection. Neck: Supple no adenopathy. Chest: Normal configuration lungs have fair air entry bilaterally with few scattered wheezes. No rhonchi or rales heard. Heart: Regular rate and rhythm no murmur. Abdomen: Soft nontender no mass, negative rigidity or guarding. Extremities: Without clubbing cyanosis edema or deformity. Skin: Warm moist good turgor no rashes. Neuro: Alert and oriented x3. No focal neuro deficits noted. Course - Re-evaluation Re-evalutation: 02/01/20 01:49 Patient rested comfortably throughout his stay. All of his diagnostic studies were normal and nondiagnostic. No cause for his symptoms was identified. He certainly has no emergency medical condition that requires further evaluation or admission at this time. On reevaluation we had a lengthy discussion about different symptomatic interventions that might be helpful. He is not interested in narcotic cough suppressants at all. We talked about using Tessalon which he is willing to try. He is also interested in natural remedies so we talked a little bit about honey and lemon. For his disturbed sleep we also talked about using melatonin. He will try these interventions. He will follow up with his primary care provider at the [place] [facility]. He should return to the emergency department if any other concerning symptoms develop. - Vital Signs Vital signs: Temp Pulse Resp BP Pulse Ox 98.4 F 68 18 99/67 L 95 01/31/20 22:00 01/31/20 22:00 01/31/20 22:00 01/31/20 22:00 01/31/20 22:00 - Laboratory Results Result Diagrams: 01/31/20 18:35 01/31/20 18:35 Laboratory Results Interpreted: 01/31/20 01/31/20 18:35 18:35 WBC 10.8 H RBC 4.18 L MCV 102 H MCH 35.5 H Lymph % (Auto) 6.4 L [place] % (Auto) 1.1 L Absolute Neuts (auto) 10.0 H Seg Neutrophils % 92.0 H Potassium 3.5 L Glucose 132 H Critical Laboratory Results Reviewed: No Critical Results - Radiology Results Critical Radiology Results Reviewed: No Critical Results - EKG Interpretation by Me Additional EKG results interpreted by me: 02/01/20 01:48 Machine interpretation said "ectopic atrial rhythm" but I think it was normal sinus rhythm. No evidence of ischemia. Discharge - Discharge Clinical Impression: Cough in adult Condition: Good Disposition: HOME, SELF-CARE Additional Instructions: A prescription for benzonatate gelcaps for cough has been sent to your pharmacy. Please pick these up and use them according to label directions. As we discussed you may find honey and lemon useful. Try the melatonin that you have at home for sleep. Take it about 30 minutes before bedtime. Follow the label directions. Follow-up with your primary care clinic to discuss referral back to a separations scientist for further evaluation. Return to the emergency department if any concerning symptoms develop. We will call you with your Covid test results if they are positive. Prescriptions: Benzonatate [Tessalon Perles 100 mg Capsule] 100 mg PO Q8HP PRN #40 capsule PRN Reason: Benzonatate [Tessalon Perles 100 mg Capsule] 100 mg PO ASDIR PRN #40 capsule PRN Reason: Referrals: [facility] [Primary [facility]] - Follow up as needed
[2020-01-31 23:56] VITALS: BP 99/67
== END 2020-02-01 00:07 | disposition home or self-care (01) ==
LOC: ER 14:47
DX: R05 Cough (principal); R07.9 Chest pain, unspecified; I25.2 Old myocardial infarction; Z20.828 Contact with and (suspected) exposure to other viral communicable diseases
CPT/HCPCS: 93005; 99285; 36415; 87070; 87880; 85025; 87635; 80053; 84484; 87804; 83880; 71045; 93010; C9803